=== PATIENT | female | born 1940 | race Caucasian/White ===

== ENCOUNTER 2017-07-17 17:14 | Observation (INO) ==
[2017-07-17] MEDS ORDERED: Nitroglycerin 0.4 MG TAB.SUBL SL PRN (18:29)
[2017-07-17 18:49] LABS: Basophils % 0.7 %; Eosinophils # 0.1 K/mcL (0.0-0.6); Eosinophils % 1.6 %; Hematocrit 36.1 % (35.3-44.9); Hemoglobin 12.4 g/dL (11.5-15.4); Immature Granulocytes % 0.2 % (0-4); Immature Platelets 1.4 % (1.1-6.1); Lymphocytes # 2.4 K/mcL (0.6-4.6); Lymphocytes % 42.5 %; Mean Corpuscular HGB Conc 34.3 g/dL (31.6-35.5); Mean Corpuscular Hemoglobin 32.5 pg (28.0-33.3); Mean Corpuscular Volume 94.5 fL (83.0-100.0); Mean Platelet Volume 8.5 fL (9.4-12.4); Monocytes # 0.6 K/mcL (0.0-1.3); Monocytes % 11.1 %; Neutrophils # 2.5 K/mcL (1.6-8.9); Platelet Count 318 K/mcL (140-400); Red Blood Count 3.82 M/mcL (3.82-4.97); Red Cell Distribution Width 12.1 % (11.5-14.5); Segmented Neutrophils % 43.9 %
[2017-07-17 19:02] LABS: Albumin/Globulin Ratio 1.1 (1.1-2.2); Bilirubin,Direct 0.3 mg/dL (0.0-0.5); Bilirubin,Indirect 0.3 mg/dL (0.0-1.2); Bilirubin,Total 0.6 mg/dL (0.2-1.2); Globulin 3.6 g/dL (2.4-3.5); Total Protein 7.6 g/dL (6.0-8.3)
[2017-07-17] MEDS ORDERED: *HR* Morphine 2 MG/ML SYRINGE IVP ONE (19:46)
[2017-07-17 20:39] LABS: BUN/Creatinine Ratio 19 (6-26); Blood Urea Nitrogen 14 mg/dL (7-20); Calcium 10.5 mg/dL (8.6-10.8); Carbon Dioxide 25 mEq/L (19-29); Chloride 98 mEq/L (98-109); Glucose 99 mg/dL (70-99); Osmolality,Calculated 277 (280-300); Potassium 4.3 mEq/L (3.5-4.5); Sodium 133 mEq/L (136-145); eGFR For African Americans > 60 (> 60); eGFR For Non-African Americans > 60 (> 60)
[2017-07-17 21:01] LABS: Thyroid Stimulating Hormone 1.758 mcIU/mL (0.350-4.840)
[2017-07-17] MEDS ORDERED: *HR* LORazepam 2 MG/ML VIAL IVP ONE (21:58)
--- NOTE | 2017-07-17 22:07 | Emergency Department Note ---
Disposition Clinical Impression: Atypical chest pain, Hiatal hernia Disposition: Admitted As Inpatient Condition: Good Referrals: Radha Ayala CNP [Primary Care Provider] - Forms: ED Satisfaction Letter Time of Disposition: 22:15 Chest Pain HPI - General Chief Complaint: ED Chest Pain Stated Complaint: Chest Pain Time Seen by Provider: 07/17/17 18:14 Source: patient Limitations: no limitations Vital Signs Reviewed: Yes Nursing Notes Reviewed: Yes - History of Present Illness HPI Narrative: 77-year-old female presents emergency room for chest pain and pressure. Started earlier this afternoon while sitting at home. States it was substernal in nature. Radiated slightly to her back as well as to her neck region. She felt short of breath and had nausea with this. No diaphoresis. No vomiting. She does have a history of stents. approximately 4 stents. Last stent was in 2012 roughly. She states most of her pain is more of a pressure. She also some slight pressure in the epigastric region. No other associated symptoms. No other complaints. Nothing seems to improve or worsened symptoms. Severity scale (1-10): 7 - Related Data Home Medications Medication Instructions Recorded Confirmed Aspirin 81 mg PO DAILY 03/01/17 03/01/17 Atorvastatin [Lipitor] 40 mg PO HS 03/01/17 03/01/17 Calcium Carb/D3/Magnesium/Zinc 1 tab PO DAILY 03/01/17 03/01/17 [Hpilip Mag Zinc + D Tablet] Cholecalciferol (Vitamin D3) 5,000 unit PO DAILY 03/01/17 03/01/17 [Vitamin D3] Ferrous Sulfate [Iron] 325 mg PO DAILY 03/01/17 03/01/17 Furosemide [Lasix] 10 mg PO BID 03/01/17 03/01/17 Isosorbide MONOnitrate [Isosorbide 20 mg PO DAILY 03/01/17 03/01/17 Mononitrate] Nitroglycerin [Nitrostat] 0.4 mg SL Q5M PRN 03/01/17 03/01/17 Pantoprazole Sodium [Protonix] 40 mg PO DAILY 03/01/17 03/01/17 Potassium 99 mg PO DAILY 03/01/17 03/01/17 Tiotropium Br/Olodaterol HCl 2 puff IH DAILY 03/01/17 03/01/17 [Stiolto Respimat Inhal [place]] Previous Rx's Medication Instructions Recorded Albuterol Sulfate [Albuterol 2 puff IH Q4HR #1 hfa.aer.ad 03/23/16 Inhaler] Allergies Allergy/AdvReac Type Severity Reaction Status Date / Time acetaminophen Allergy Nausea Verified 03/01/17 08:01 [From Darvocet-N] Amoxicillin [From Augmentin] Allergy Diarrhea Verified 03/01/17 08:01 clavulanic acid Allergy Diarrhea Verified 03/01/17 08:01 [From Augmentin] codeine Allergy Itching Verified 03/01/17 08:01 propoxyphene Allergy Nausea Verified 03/01/17 08:01 [From Darvocet-N] Constitutional: Denies: fever, chills Cardiovascular: Reports: chest pain. Denies: palpitations, dyspnea on exertion Respiratory: Reports: dyspnea. Denies: cough Gastrointestinal: Reports: abdominal pain, nausea. Denies: vomiting Genitourinary: Reports: as per HPI Musculoskeletal: Reports: as per HPI Integumentary: Reports: as per HPI Neurological: Reports: as per HPI Psychiatric: Reports: as per HPI Endocrine: Reports: as per HPI Hematological/Lymphatic: Reports: as per HPI Allergic/Immunologic: Reports: as per HPI Chest Pain PMH - Past Medical History Medical history: Reports: coronary artery disease, hypertension, other Surgical history: Reports: appendectomy, hysterectomy Psychiatric history: Reports: no psych history PAGE TECHNICIAN history: Reports: no PAGE TECHNICIAN history - Social History Smoking Status: Never smoker Alcohol use: Reports: occasionally Drug use: Reports: none Physical Exam - General Limitations: no limitations General appearance: alert, in no apparent distress - Head Head exam: atraumatic, normocephalic - Eye Eye exam: Present: normal appearance - Neck Neck exam: Present: normal inspection, full ROM - Chest Chest inspection: Present: normal inspection - Respiratory Respiratory exam: Present: normal lung sounds bilaterally - Cardiovascular Cardiovascular exam: Present: regular rate, normal rhythm, normal heart sounds - Abdominal Exam Abdominal exam: Present: soft, Non-Tender, normal bowel sounds - Extremities Exam Extremities exam: Present: normal inspection. Absent: tenderness - Expanded Lower Extremity Exam Hip/Pelvis exam: Present: normal inspection - Back Exam Back exam: Present: normal inspection - Neurological Exam Neurological exam: Present: alert, oriented X3 - Psychiatric Psychiatric exam: Present: normal affect - Skin Skin exam: Present: warm, dry, intact Course Course Narrative: ACS workup was negative. She does have an elevated d-dimer. On her chest x- ray shows a had a large hiatal hernia present. I thought this could be the cause of her pressure in her chest. We did a CTA of the chest which was negative for PE. No other acute findings other than she does have an extensive large hiatal hernia. We did treat her blood pressure due to it being elevated in the 180 range. I gave her hydralazine because her heart rate was in the 60s. She had a reaction to the hydralazine with some anxiety as well as cutaneous flushing and shortness of breath and nose itching. I then gave her 0.5 mg of Ativan to help with this anxiety component. Spoke with the hospitalist. They have accepted the patient to their service. evaluate her overnight and keep her for observation. Vital Signs Temperature 97.4 F L 07/17/17 17:48 Pulse Rate 81 07/17/17 17:48 Respiratory Rate 16 07/17/17 17:48 Blood Pressure 160/84 07/17/17 17:48 O2 Sat by Pulse Oximetry 97 07/17/17 17:48 Temperature 97.4 F L 07/17/17 17:48 Pulse Rate 62 07/17/17 21:33 Respiratory Rate 22 07/17/17 21:33 Blood Pressure 173/75 07/17/17 21:33 O2 Sat by Pulse Oximetry 97 07/17/17 21:33 Oxygen Delivery Oxygen Delivery Room Air Chest Pain - Medical Records Medical records reviewed: Yes I reviewed the patient's medical records. - Lab Data Lab results reviewed: Yes I reviewed the patient's lab results. Result diagrams: 07/17/17 18:39 07/17/17 18:39 Lab Results 07/17/17 07/17/17 07/17/17 Range/Units 18:39 18:39 18:39 WBC 5.7 (4.3-11.1) K/mcL RBC 3.82 (3.82-4.97) M/mcL Hgb 12.4 (11.5-15.4) g/dL Hct 36.1 (35.3-44.9) % MCV 94.5 (83.0-100.0) fL MCH 32.5 (28.0-33.3) pg MCHC 34.3 (31.6-35.5) g/dL RDW 12.1 (11.5-14.5) % Plt Count 318 (140-400) K/mcL MPV 8.5 L (9.4-12.4) fL Immature Gran % 0.2 (0-4) % Seg Neutrophils % 43.9 % Lymphocytes % 42.5 % Monocytes % 11.1 % Eosinophils % 1.6 % Basophils % 0.7 % Neutrophils # 2.5 (1.6-8.9) K/mcL Lymphocytes # 2.4 (0.6-4.6) K/mcL Monocytes # 0.6 (0.0-1.3) K/mcL Eosinophils # 0.1 (0.0-0.6) K/mcL Basophils # 0.0 (0.0-0.2) K/mcL Immature Plt Fraction 1.4 (1.1-6.1) % D-Dimer (0-500) ng/mLFEU Sodium 133 L (136-145) mEq/L Potassium 4.3 (3.5-4.5) mEq/L Chloride 98 (98-109) mEq/L Carbon Dioxide 25 (19-29) mEq/L BUN 14 (7-20) mg/dL Creatinine 0.75 (0.57-1.11) mg/dL Est GFR ( Amer) > 60 (> 60) Est GFR (Non-Af Amer) > 60 (> 60) BUN/Creatinine Ratio 19 (6-26) Glucose 99 (70-99) mg/dL Calculated Osmolality 277 L (280-300) Calcium 10.5 (8.6-10.8) mg/dL Total Bilirubin (0.2-1.2) mg/dL Direct Bilirubin (0.0-0.5) mg/dL Indirect Bilirubin (0.0-1.2) mg/dL AST (5-34) Units/L ALT (0-55) Units/L Alkaline Phosphatase (38-126) Units/L Troponin I 0.01 (0-0.03) ng/mL Serum Total Protein (6.0-8.3) g/dL Albumin (3.5-5.0) g/dL Globulin (2.4-3.5) g/dL Albumin/Globulin Ratio (1.1-2.2) Lipase (8-78) Units/L TSH 1.758 (0.350-4.840) mcIU/mL 07/17/17 07/17/17 Range/Units 18:39 18:39 WBC (4.3-11.1) K/mcL RBC (3.82-4.97) M/mcL Hgb (11.5-15.4) g/dL Hct (35.3-44.9) % MCV (83.0-100.0) fL MCH (28.0-33.3) pg MCHC (31.6-35.5) g/dL RDW (11.5-14.5) % Plt Count (140-400) K/mcL MPV (9.4-12.4) fL Immature Gran % (0-4) % Seg Neutrophils % % Lymphocytes % % Monocytes % % Eosinophils % % Basophils % % Neutrophils # (1.6-8.9) K/mcL Lymphocytes # (0.6-4.6) K/mcL Monocytes # (0.0-1.3) K/mcL Eosinophils # (0.0-0.6) K/mcL Basophils # (0.0-0.2) K/mcL Immature Plt Fraction (1.1-6.1) % D-Dimer 700 H (0-500) ng/mLFEU Sodium (136-145) mEq/L Potassium (3.5-4.5) mEq/L Chloride (98-109) mEq/L Carbon Dioxide (19-29) mEq/L BUN (7-20) mg/dL Creatinine (0.57-1.11) mg/dL Est GFR ( Amer) (> 60) Est GFR (Non-Af Amer) (> 60) BUN/Creatinine Ratio (6-26) Glucose (70-99) mg/dL Calculated Osmolality (280-300) Calcium (8.6-10.8) mg/dL Total Bilirubin 0.6 (0.2-1.2) mg/dL Direct Bilirubin 0.3 (0.0-0.5) mg/dL Indirect Bilirubin 0.3 (0.0-1.2) mg/dL AST 22 (5-34) Units/L ALT 16 (0-55) Units/L Alkaline Phosphatase 99 (38-126) Units/L Troponin I (0-0.03) ng/mL Serum Total Protein 7.6 (6.0-8.3) g/dL Albumin 4.0 (3.5-5.0) g/dL Globulin 3.6 H (2.4-3.5) g/dL Albumin/Globulin Ratio 1.1 (1.1-2.2) Lipase 28 (8-78) Units/L TSH (0.350-4.840) mcIU/mL - Radiology Data Radiology results reviewed: Yes I reviewed the patient's radiology results. - EKG Data EKG attestation: Yes I reviewed and interpreted this EKG. EKG results narrative: EKG shows a rate of 81. Normal sinus rhythm. Left axis deviation. DE interval 154. QRS 82. QTC 408. No signs of acute ischemia. Repeat EKG done at 2155. Artifact is present. Rate of 89. Normal sinus rhythm. Left axis deviation. DE interval 178. QRS 78. QTC 415. No acute findings.
[2017-07-17] MEDS ORDERED: Naloxone 0.4 MG/ML INJ IVP PRN (23:52)
[2017-07-17] MEDS ORDERED: *HR* Morphine 2 MG/ML SYRINGE IVP PRN (23:52)
[2017-07-17] MEDS ORDERED: Ondansetron 4 MG/2 ML VIAL IVP PRN (23:52)
--- NOTE | 2017-07-17 23:59 | Event Note ---
Date of Encounter: 07/17/17 Time of Encounter: 23:59 I independently obtained history and examined this patient and my medical decision-making was reviewed with the nurse practitioner, Millie Ochoa. I agree with the documented findings, disposition and treatment plan as described. My findings are summarized below: Patient currently reports mild chest pressure, no associated diaphoresis, no radiation. She presented with substernal chest pain that was not relieved by nitroglycerin. On exam she is in no acute distress awake alert and oriented. Heart exam reveals regular S1-S2 no murmurs, lungs are clear Troponin is negative, EKG nonischemic Plan: Transient troponin, rule out ACS. Obtain stress test in the morning. If she rules out then stress test is negative consider GI workup for a large hiatal hernia of the source of her chest pain.
--- NOTE | 2017-07-18 00:04 | Internal Med History&Physical ---
<Millie Ochoa M - Last Filed: 07/18/17 00:01> Date of Encounter: 07/17/17 Time of Encounter: 23:55 Assessment and Plan (1) Atypical chest pain Current visit: Yes Status: Acute Patient with constant chest pain radiating to her back and upper abdomen with reported shortness of breath and lightheadedness. She has a history of CAD with stent placements. EKG shows no ischemic changes. Initial Troponin was negative at 0.01. CTA showed no evidence of PE. Continuous surveillance monitor serial troponins stress test and echocardiogram in the morning. (2) Coronary artery disease Current visit: Yes Status: Acute Patient with CAD s/p multiple stent placements, most recently in 2012. She will be getting stress test and echocardiogram in the morning as evaluation of her chest pain. Hold morning imdur until after stress test. Continue aspirin, and lipitor. Qualifiers: Coronary Disease-Associated Artery/Lesion type: [place] artery [place] vs. transplanted heart: [place] heart Associated angina: angina presence unspecified Qualified Code(s): I25.10 - Atherosclerotic heart disease of [place] coronary artery without angina pectoris (3) Hiatal hernia Current visit: Yes Status: Acute Patient with known history of hiatal hernia and has followed with Dr. Wiley of Surgery in the past. CTA of the chest redemonstrated the hiatal hernia and reported size is slightly increased. This is possible source of patient's chest discomfort. If ACS is ruled out, she should be referred for follow up of her hiatal hernia. (4) DVT prophylaxis Current visit: Yes Status: Acute anti-embolic stockings heparin SQ TID Internal Medicine - H&P: HPI Chief complaint: chest pain Admitted From: Emergency Dept Plans for Post Hospital Care: Home History of present illness: Ms. Delong is a 77 year old female with hypertension, GERD, coronary artery disease status post stent placement, and hiatal hernia presents emergency room today with complaints of chest pain. Patient reports that she chest pain started on Saturday, she describes it as a pressure, constant radiating to her upper abdomen and to her back. She also reports shortness of breath, and nausea , as well as occasional lightheadedness. She denies any palpitations, coughing , vomiting, fever, chills or sweats. Evaluation in the emergency department included an EKG which showed normal sinus rhythm and no ischemic changes. Troponin was negative at 0.01. D-dimer was mildly elevated at 700. Chest x- ray showed no acute abnormality. CTA of her chest showed no evidence of PE, and large hiatal hernia. On exam, patient alert and oriented, in no acute distress. Heart had regular rate and rhythm, lungs are clear bilaterally to auscultation. No peripheral edema. Abdomen was soft, mildly tender to palpation, with positive bowel sounds. Past Med Surg Social Fam HX - Past Medical History Medical history: coronary artery disease, GERD, hypertension, other Psychiatric history: no psych history - Past Surgical History Surgical History: angioplasty/stent, appendectomy, hysterectomy, knee replacement, orthopedic, other - Social History Smoking Status: Never smoker Smokeless Tobacco Status: No Alcohol use: occasionally Drug use: none - Family History Mother Living Status: Cause of : ashtmatic heart Father Living Status: Cause of : CVA Brother Living Status: Age at : 45 Cause of : AR Internal Medicine - H&P: Meds Aspirin 81 mg PO HS 03/01/17 [History] Atorvastatin [Lipitor] 40 mg PO HS 03/01/17 [History] Calcium Carb/D3/Magnesium/Zinc [Philip Mag Zinc + D Tablet] 1 tab PO DAILY [History] Cholecalciferol (Vitamin D3) [Vitamin D3] 5,000 unit PO DAILY 03/01/17 [History] Ferrous Sulfate [Iron] 325 mg PO DAILY 03/01/17 [History] Furosemide [Lasix] 10 mg PO DAILY 03/01/17 [History] Isosorbide MONOnitrate [Isosorbide Mononitrate] 20 mg PO DAILY 03/01/17 [History ] Nitroglycerin [Nitrostat] 0.4 mg SL Q5M PRN 03/01/17 [History] Potassium 99 mg PO DAILY 03/01/17 [History] Acetaminophen [Tylenol] 1,000 mg PO HS 07/17/17 [History] DULoxetine [Cymbalta] 30 mg PO DAILY 07/17/17 [History] Esomeprazole Magnesium [Nexium] 40 mg PO DAILY 07/17/17 [History] Latanoprost [Xalatan] 1 drop OP HS 07/17/17 [History] Magnesium 250 mg PO DAILY 07/17/17 [History] Valsartan [Valsartan] 40 mg PO DAILY 07/17/17 [History] 3 Allergy/AdvReac Type Severity Reaction Status Date / Time acetaminophen Allergy Nausea Verified 03/01/17 08:01 [From Darvocet-N] Amoxicillin [From Augmentin] Allergy Diarrhea Verified 03/01/17 08:01 clavulanic acid Allergy Diarrhea Verified 03/01/17 08:01 [From Augmentin] codeine Allergy Itching Verified 03/01/17 08:01 propoxyphene Allergy Nausea Verified 03/01/17 08:01 [From Darvocet-N] Hydralazine AdvReac Hypotension Verified 07/17/17 23:54 All Systems PM: A 10-system review of systems was performed and is negative for pertinent findings except as documented above in the HPI. - Constitutional Constitutional: no chills, no fever(s), no night sweats - EENT Eyes: blurry vision (chronic), no change in vision, no discharge, no pain, no photophobia Ears: no ear discharge, no ear pain, no tinnitus Nose, mouth and throat: no dysphagia, no nasal discharge, no neck pain, no sore throat - Cardiovascular Cardiovascular ROS IM: chest pain, dyspnea, lightheadedness, no diaphoresis, no palpitations, no syncope - Respiratory Respiratory: no cough, no dyspnea, no wheezing, no excessive phlegm production - Gastrointestinal Gastrointestinal: abdominal pain, nausea, no diarrhea, no hematemesis, no hematochezia, no melena, no vomiting - Genitourinary Genitourinary: no change in urinary stream, no dysuria, no flank pain, no hematuria - Musculoskeletal Musculoskeletal ROS IM: no numbness, no tingling - Integumentary Integumentary IM: no rash, no unusual bruising - Neurological Neurological ROS: no confusion, no convulsions, no focal weakness, no numbness, no tingling, no tremor(s) - Hematologic/Lymphatic Hematologic/Lymphatic: no easy bruising - Constitutional Vitals: Temp Pulse Resp BP Pulse Ox 97.6 F 81 18 131/56 97 07/17/17 23:20 07/17/17 23:20 07/17/17 23:20 07/17/17 23:20 07/17/17 23:48 General appearance: Present: A&O X 3, pleasant, no acute distress - Head Head exam: Present: atraumatic, normocephalic - Eye Eye exam: Present: PERRL, conjuntiva pink, sclera anicteric Pupils: Present: PERRL - Neck Neck exam general surgery: Present: supple, trachea midline. Absent: lymphadenopathy - Respiratory Respiratory exam: Present: CTAB. Absent: accessory muscle use, rales, rhonchi, wheezes - Cardiovascular Cardiovascular exam: Present: RRR, +S1, +S2. Absent: diastolic murmur, gallop, rubs, systolic murmur - GI/Abdominal GI/Abdominal exam: Present: normal bowel sounds, soft, tenderness (mildly diffusely tender), no peritoneal signs. Absent: distended - Extremities Exam Extremities exam: Present: warm, radial pulses palpable and symmetrical. Absent : calf tenderness, cyanotic, pedal edema - Neurological Exam Neurological exam: Present: CN II-XII intact, oriented X3, no focal deficits. Absent: facial droop, speech deficit - Skin Skin exam: Present: dry, intact Internal Med - H&P Results - Labs CBC & Chem 7: 07/17/17 18:39 07/17/17 18:39 Labs: All Lab Results (24 Hours) 07/17/17 07/17/17 07/17/17 Range/Units 18:39 18:39 18:39 WBC 5.7 (4.3-11.1) K/mcL RBC 3.82 (3.82-4.97) M/mcL Hgb 12.4 (11.5-15.4) g/dL Hct 36.1 (35.3-44.9) % MCV 94.5 (83.0-100.0) fL MCH 32.5 (28.0-33.3) pg MCHC 34.3 (31.6-35.5) g/dL RDW 12.1 (11.5-14.5) % Plt Count 318 (140-400) K/mcL MPV 8.5 L (9.4-12.4) fL Immature Gran % 0.2 (0-4) % Seg Neutrophils % 43.9 % Lymphocytes % 42.5 % Monocytes % 11.1 % Eosinophils % 1.6 % Basophils % 0.7 % Neutrophils # 2.5 (1.6-8.9) K/mcL Lymphocytes # 2.4 (0.6-4.6) K/mcL Monocytes # 0.6 (0.0-1.3) K/mcL Eosinophils # 0.1 (0.0-0.6) K/mcL Basophils # 0.0 (0.0-0.2) K/mcL Immature Plt Fraction 1.4 (1.1-6.1) % D-Dimer (0-500) ng/mLFEU Sodium 133 L (136-145) mEq/L Potassium 4.3 (3.5-4.5) mEq/L Chloride 98 (98-109) mEq/L Carbon Dioxide 25 (19-29) mEq/L BUN 14 (7-20) mg/dL Creatinine 0.75 (0.57-1.11) mg/dL Est GFR ( Amer) > 60 (> 60) Est GFR (Non-Af Amer) > 60 (> 60) BUN/Creatinine Ratio 19 (6-26) Glucose 99 (70-99) mg/dL Calculated Osmolality 277 L (280-300) Calcium 10.5 (8.6-10.8) mg/dL Total Bilirubin (0.2-1.2) mg/dL Direct Bilirubin (0.0-0.5) mg/dL Indirect Bilirubin (0.0-1.2) mg/dL AST (5-34) Units/L ALT (0-55) Units/L Alkaline Phosphatase (38-126) Units/L Troponin I 0.01 (0-0.03) ng/mL Serum Total Protein (6.0-8.3) g/dL Albumin (3.5-5.0) g/dL Globulin (2.4-3.5) g/dL Albumin/Globulin Ratio (1.1-2.2) Lipase (8-78) Units/L TSH 1.758 (0.350-4.840) mcIU/mL 07/17/17 07/17/17 Range/Units 18:39 18:39 WBC (4.3-11.1) K/mcL RBC (3.82-4.97) M/mcL Hgb (11.5-15.4) g/dL Hct (35.3-44.9) % MCV (83.0-100.0) fL MCH (28.0-33.3) pg MCHC (31.6-35.5) g/dL RDW (11.5-14.5) % Plt Count (140-400) K/mcL MPV (9.4-12.4) fL Immature Gran % (0-4) % Seg Neutrophils % % Lymphocytes % % Monocytes % % Eosinophils % % Basophils % % Neutrophils # (1.6-8.9) K/mcL Lymphocytes # (0.6-4.6) K/mcL Monocytes # (0.0-1.3) K/mcL Eosinophils # (0.0-0.6) K/mcL Basophils # (0.0-0.2) K/mcL Immature Plt Fraction (1.1-6.1) % D-Dimer 700 H (0-500) ng/mLFEU Sodium (136-145) mEq/L Potassium (3.5-4.5) mEq/L Chloride (98-109) mEq/L Carbon Dioxide (19-29) mEq/L BUN (7-20) mg/dL Creatinine (0.57-1.11) mg/dL Est GFR ( Amer) (> 60) Est GFR (Non-Af Amer) (> 60) BUN/Creatinine Ratio (6-26) Glucose (70-99) mg/dL Calculated Osmolality (280-300) Calcium (8.6-10.8) mg/dL Total Bilirubin 0.6 (0.2-1.2) mg/dL Direct Bilirubin 0.3 (0.0-0.5) mg/dL Indirect Bilirubin 0.3 (0.0-1.2) mg/dL AST 22 (5-34) Units/L ALT 16 (0-55) Units/L Alkaline Phosphatase 99 (38-126) Units/L Troponin I (0-0.03) ng/mL Serum Total Protein 7.6 (6.0-8.3) g/dL Albumin 4.0 (3.5-5.0) g/dL Globulin 3.6 H (2.4-3.5) g/dL Albumin/Globulin Ratio 1.1 (1.1-2.2) Lipase 28 (8-78) Units/L TSH (0.350-4.840) mcIU/mL - Diagnostic Studies Chest x-ray Additional comments: Chest X-Ray 07/17/17 17:52 IMPRESSION: No acute abnormality detected. D/ / Jam Atkinson MD / Jam Atkinson MD Interpreting Provider: Jam Atkinson MD [place] CT scan - abdomen Additional comments: Chest CTA 07/17/17 19:06 IMPRESSION: No evidence of pulmonary embolism or acute pulmonary abnormality. Stable right upper lobe scarring. The gallbladder wall appears diffusely thickened. Gallbladder was incompletely visualized. Follow-up gallbladder ultrasound after fasting may be helpful. D/ / Nestor Silva MD / Nestor Silva MD Interpreting Provider: Nestor Silva MD <Luis Mcmahan - Last Filed: 07/18/17 06:04> Date of Encounter: 07/17/17 Internal Medicine - H&P: HPI History of present illness: Ms. Delong is a 77 year old female All Systems PM: A 10-system review of systems was performed and is negative for pertinent findings except as documented above in the HPI. - Constitutional Vitals: Temp Pulse Resp BP Pulse Ox 97.6 F 81 18 131/56 97 07/17/17 23:20 07/17/17 23:20 07/17/17 23:20 07/17/17 23:20 07/17/17 23:48 Internal Med - H&P Results - Labs CBC & Chem 7: 07/18/17 04:11 07/17/17 18:39 Labs: Short CBC 07/18/17 Range/Units 04:11 WBC 5.8 (4.3-11.1) K/mcL Hgb 11.3 L (11.5-15.4) g/dL Hct 32.8 L (35.3-44.9) % Plt Count 260 (140-400) K/mcL Neutrophils # 3.0 (1.6-8.9) K/mcL Cardiac Enzymes 07/18/17 Range/Units 04:11 Troponin I 0.00 (0-0.03) ng/mL - Attending Attestation I independently obtained history and examined this patient and my medical decision-making was reviewed with the nurse practitioner, Millie Ochoa. I agree with the documented findings, disposition and treatment plan as described. My findings are summarized in the event note dictated the same date of service.
[2017-07-18 05:17] LABS: Basophils # 0.1 K/mcL (0.0-0.2); Basophils % 0.9 %; Eosinophils # 0.1 K/mcL (0.0-0.6); Eosinophils % 2.2 %; Hematocrit 32.8 % (35.3-44.9); Hemoglobin 11.3 g/dL (11.5-15.4); Immature Granulocytes % 0.2 % (0-4); Lymphocytes # 1.9 K/mcL (0.6-4.6); Lymphocytes % 32.6 %; Mean Corpuscular HGB Conc 34.5 g/dL (31.6-35.5); Mean Corpuscular Hemoglobin 32.2 pg (28.0-33.3); Mean Corpuscular Volume 93.4 fL (83.0-100.0); Monocytes # 0.7 K/mcL (0.0-1.3); Monocytes % 12.7 %; Platelet Count 260 K/mcL (140-400); Red Blood Count 3.51 M/mcL (3.82-4.97); Red Cell Distribution Width 12.1 % (11.5-14.5); Segmented Neutrophils % 51.4 %
[2017-07-18] MEDS: *HR* Heparin 5,000 UNIT/ML VIAL SQ SCH ×3 (05:41→20:48)
[2017-07-18] MEDS ORDERED: Regadenoson 0.4 MG/5 ML SYRINGE IVP ONE (05:41)
[2017-07-18 07:23] LABS: BUN/Creatinine Ratio 22 (6-26); Blood Urea Nitrogen 15 mg/dL (7-20); Calcium 9.4 mg/dL (8.6-10.8); Carbon Dioxide 23 mEq/L (19-29); Chloride 99 mEq/L (98-109); Chol/HDL Ratio 3.1 (0-4.9); Cholesterol 134 mg/dL (< 200); Glucose 93 mg/dL (70-99); HDL Cholesterol 43 mg/dL (40-59); LDL Cholesterol,Calculated 76 mg/dL (0-99); Osmolality,Calculated 281 (280-300); Potassium 4.2 mEq/L (3.5-4.5); Sodium 135 mEq/L (136-145); Triglycerides 74 mg/dL (< 150); eGFR For African Americans > 60 (> 60); eGFR For Non-African Americans > 60 (> 60)
[2017-07-18] MEDS ORDERED: NON-FORMULARY MEDICATION 1 EACH EACH (Isosorbide Mononitrate [Isosorbide Mononitrate] 20 M PO SCH (09:00)
[2017-07-18] MEDS: Potassium [Potassium] 99 MG PO SCH (09:44)
[2017-07-18] MEDS: MAGNESIUM 250MG PO SCH (09:44)
[2017-07-18] MEDS: Valsartan 80 MG TABLET PO SCH (13:02)
[2017-07-18] MEDS: Furosemide 20 MG TABLET PO SCH (13:03)
--- NOTE | 2017-07-18 13:20 | Nuclear Medicine Stress Report ---
Regadenoson Nuclear Stress Name: Amada Delong Date of Study: 07/18/2017 Date: 1940 Ht: 63.0 in Medical Record#: [id number] Age: 77 Wt: 144.0 lb Gender: Female Order #: [id number] Location: [facility] Room: [facility] Supervising Provider: Anel Frazier CNP Reading Physician: Yola Whyte DO Ordering Physician: Blaire Florez CNP Primary Care Physician: Radha Ayala CNP Stress Technologist: Aaron Fitzgerald CRT Power Lineworker: Gary Cook Indications: Chest Pain Impression: Perfusion imaging was negative for ischemia or infarct. No appreciable change in pharmacologic ECG from baseline. Gated EF = >70%. History: Hypertension Hypercholesteremia Stress Test Summary: Stress Test Type: Pharmacologic Regadenoson 0.4mg/5ml given IV Baseline Information: Initial Heart Rate: 79 Blood Pressure: 114/70 Stress Information: Test Terminated Due to (primary): As per protocol Maximum Blood Pressure: 122/70 Maximum Heart Rate: 112 Percent Maximum Heart Rate Achieved: 79 Double Product: 14256 METS Reached: 1 Symptoms: No chest symptoms Nuclear Summary: SPECT myocardial perfusion imaging using Tc99m Sestamibi given intravenously was performed at rest and following cardiac stress testing. The resting images were obtained following initial dose of 11.7 mCi. Following stress an additional dose of 33.6 mCi was given at peak exercise or 30 seconds post regadenoson infusion. Medication Given: Time Medication Dose Units Route Findings: Stress Note * Resting ECG demonstrated normal sinus rhythm with probable leftward axis, poor R wave progression and nonspecific ST abnormalities. * No appreciable change in pharmacologic ECG with stress. * Occasional PVCs noted during testing. * Patient had no chest pain during stress. Hemodynamic responses * Normal hemodynamic responses to pharmacologic stress. Study Quality * Study quality was fair. Gated EF > 70% * Gated EF > 70%. Left Ventricle * The left ventricle is not dilated. TID * No evidence of transient ischemic dilatation. Lung Uptake * There is no evidence of increase lung uptake. NORMALS * Normal wall motion. PERFUSION * There is a small size, fixed perfusion defect involving the distal inferolateral wall. Wall motion is normal in this area. Findings likely represent artifact. * Other segments demonstrate normal rest and stress radiotracer uptake. Updated by Yola Whyte on 07/18/2017 1:11:39 PM electronically signed on 07/18/2017 1:14:04 PM with status of Final
[2017-07-18] MEDS: Isosorbide MONOnitrate (24 HR) 30 MG TAB.ER.24H PO SCH (14:14)
--- NOTE | 2017-07-18 16:36 | Internal Med Progress Note ---
Date of Encounter: 07/18/17 Time of Encounter: 15:45 - Assessment and plan (1) Atypical chest pain Current Visit: Yes Status: Acute Assessment and plan: Chest pain is reproducible with palpation and worsened with movement. Consistent with musculoskeletal etiology. Chest x-ray negative. Chest CTA unremarkable for acute processes other than an increase size to her hiatal hernia. CT also revealed possible thickening to the gallbladder wall however abdominal labs including lipase, bilirubin, LFTs all normal. Echocardiogram unremarkable with ejection fraction of 60% and mild diastolic dysfunction. Patient euvolemic on examination and denies shortness of breath above her norm. Stress test negative. Acute coronary syndrome has been ruled out. Requesting surgery's input regarding the patient's hiatal hernia. Will also obtain gallbladder ultrasound. In review of her chart, patient appears to have had multiple endoscopies over the past several years. 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 Most recent EGD was on 03/01/[address] Wiley that revealed a medium-sized hiatal hernia. Z line irregular at the gastroesophageal junction that was biopsied. Normal stomach, normal examined duodenum. ITS Impressions Chest X-Ray 07/17/17 17:52 IMPRESSION: No acute abnormality detected. D/ / Jam Atkinson MD / Jam Atkinson MD Interpreting Provider: Jam Atkinson MD Chest CTA 07/17/17 19:06 IMPRESSION: No evidence of pulmonary embolism or acute pulmonary abnormality. Stable right upper lobe scarring. The gallbladder wall appears diffusely thickened. Gallbladder was incompletely visualized. Follow-up gallbladder ultrasound after fasting may be helpful. D/ / Nestor Silva MD / Nestor Silva MD Interpreting Provider: Nestor Silva MD (2) Hiatal hernia Current Visit: Yes Status: Chronic (3) Anxiety about health Current Visit: Yes Status: Chronic Assessment and plan: Acute on chronic. The patient and the family are extremely concerned about the patient's hiatal hernia. They appear to be perseverating on it and states that they have they have seen her primary care provider and outpatient surgery several times and are requesting to see a surgeon during this visit prior to discharge. Patient had what appeared to be an anxiety attack over the night last night. She states that when she lays on her left side, she wakes up with left-sided chest pain, then becomes short of breath, then becomes extremely anxious and starts to panic. Patient family state that this is been going on for quite some time but is much worse in the recent past. Appreciate surgery's input. (4) Falls frequently Current Visit: Yes Status: Acute Assessment and plan: Patient and family report increased falls in the recent past. Seen and evaluated by occupational and physical therapy both of whom recommended home health services. Patient is amenable to this. director of rehabilitative services on board. (5) Coronary artery disease Current Visit: Yes Status: Chronic Qualifiers: Coronary Disease-Associated Artery/Lesion type: [place] artery [place] vs. transplanted heart: chitina heart Associated angina: angina presence unspecified Qualified Code(s): I25.10 - Atherosclerotic heart disease of [place] coronary artery without angina pectoris (6) GERD (gastroesophageal reflux disease) Current Visit: Yes Status: Acute Assessment and plan: Patient's reflux and Verdin's esophagus is an ongoing issue dating back to around 1999. She was on Protonix daily and it reportedly did well. For some reason, she states that she was switched over to Nexium which worked but then she was switched over to the generic of Nexium and she states that the generic form does not work. She states that she has severe heartburn that is uncontrolled. She states that her primary care provider is attempting to get her name brand Nexium through her insurance company but has been unsuccessful thus far. We will change to Protonix while admitted. (7) DVT prophylaxis Current Visit: Yes Status: Acute Assessment and plan: Subcutaneous heparin - Subjective Interval history: Patient seen and examined. On examination, patient initially asleep and awakened easily to voice. Her daughter and are at the bedside. Patient stating she feels better and denies pain or shortness of breath at this time. Her family is expressing a lot of concern regarding the untreated hiatal hernia and are requesting to see a surgeon at this time prior to discharge. - Constitutional Vitals: Temp Pulse Resp BP Pulse Ox 98.2 F 79 19 105/70 95 07/18/17 16:04 07/18/17 16:04 07/18/17 16:04 07/18/17 16:04 07/18/17 16:04 General appearance: Present: A&O X 3, pleasant, no acute distress, answers questions appropriately - Head Head exam: Present: atraumatic, normocephalic - Eye Eye exam: Present: PERRL, conjuntiva pink, sclera anicteric Pupils: Present: PERRL - Neck Neck exam general surgery: Present: supple, trachea midline. Absent: lymphadenopathy - Respiratory Respiratory exam: Present: CTAB. Absent: accessory muscle use, rales, respiratory distress, rhonchi, wheezes - Cardiovascular Cardiovascular exam: Present: RRR, +S1, +S2. Absent: diastolic murmur, gallop, rubs, systolic murmur - GI/Abdominal GI/Abdominal exam: Present: normal bowel sounds, soft, tenderness, no peritoneal signs. Absent: distended - Extremities Exam Extremities exam: Present: warm, radial pulses palpable and symmetrical. Absent : calf tenderness, cyanotic, pedal edema - Neurological Exam Neurological exam: Present: alert, CN II-XII intact, oriented X3, no focal deficits, strengths equal and symetr throughout. Absent: pronater drift, facial droop, speech deficit - Skin Skin exam: Present: dry, intact, pallor, warm Internal Medicine: Result - Labs CBC & Chem 7: 07/18/17 04:11 07/18/17 04:11 Labs: Short CBC 07/18/17 Range/Units 04:11 WBC 5.8 (4.3-11.1) K/mcL Hgb 11.3 L (11.5-15.4) g/dL Hct 32.8 L (35.3-44.9) % Plt Count 260 (140-400) K/mcL Neutrophils # 3.0 (1.6-8.9) K/mcL BMP 07/18/17 04:11 Sodium 135 L Potassium 4.2 Chloride 99 Carbon Dioxide 23 BUN 15 Creatinine 0.69 Glucose 93 Calcium 9.4 Cardiac Enzymes 07/18/17 07/18/17 Range/Units 04:11 09:50 Troponin I 0.00 0.01 (0-0.03) ng/mL - ABG Interpretation ABG results: PT/INR, D-dimer D-Dimer 700 ng/mLFEU (0-500) H 07/17/17 18:39 Consult Discharge Plan - Plan Referrals: Radha Ayala, [facility] [Primary Care Provider] -
[2017-07-18] MEDS ORDERED: *HR* LORazepam 2 MG/ML VIAL IVP PRN (16:44)
[2017-07-18] MEDS ORDERED: *HR* Morphine 2 MG/ML SYRINGE IVP PRN (16:44)
[2017-07-18] MEDS: Pantoprazole 40 MG VIAL IVP SCH (17:10)
--- NOTE | 2017-07-18 18:10 | Electrocardiograph Report ---
[address] [place] [address] Test Date: 2017-07-17 Pat Name: Amada Delong Department: 0 Room: 3B23 Gender: F Contract Mail Carrier: Radha : 1940 Requested By: Frankie Monaco Order Number: [id number] Reading MD: Yola Whyte Measurements Intervals [place] Rate: 89 P: 39 MT: 178 QRS: -13 QRSD: 78 T: 55 QT: 368 QTc: 415 Interpretive Statements SINUS RHYTHM ARTIFACT LIMITS INTERPRETATION Electronically Signed On 07-18-2017 18:09:04 EDT by Yola Whyte
[2017-07-18] MEDS ORDERED: Aspirin 81 MG TAB.CHEW PO SCH (21:00)
[2017-07-19 03:30] LABS: Basophils % 0.7 %; Eosinophils # 0.2 K/mcL (0.0-0.6); Eosinophils % 2.5 %; Hematocrit 32.3 % (35.3-44.9); Hemoglobin 10.9 g/dL (11.5-15.4); Immature Granulocytes % 0.2 % (0-4); Lymphocytes # 2.4 K/mcL (0.6-4.6); Lymphocytes % 39.6 %; Mean Corpuscular HGB Conc 33.7 g/dL (31.6-35.5); Mean Corpuscular Hemoglobin 32.2 pg (28.0-33.3); Mean Corpuscular Volume 95.6 fL (83.0-100.0); Mean Platelet Volume 8.9 fL (9.4-12.4); Monocytes # 0.7 K/mcL (0.0-1.3); Monocytes % 10.8 %; Neutrophils # 2.8 K/mcL (1.6-8.9); Platelet Count 269 K/mcL (140-400); Red Blood Count 3.38 M/mcL (3.82-4.97); Red Cell Distribution Width 12.2 % (11.5-14.5); Segmented Neutrophils % 46.2 %
[2017-07-19 03:33] LABS: Prothrombin Time 10.8 Seconds (9.4-12.1)
[2017-07-19 03:44] LABS: BUN/Creatinine Ratio 24 (6-26); Blood Urea Nitrogen 18 mg/dL (7-20); Calcium 9.2 mg/dL (8.6-10.8); Carbon Dioxide 25 mEq/L (19-29); Chloride 99 mEq/L (98-109); Glucose 96 mg/dL (70-99); Osmolality,Calculated 274 (280-300); Potassium 4.3 mEq/L (3.5-4.5); Sodium 131 mEq/L (136-145); eGFR For African Americans > 60 (> 60); eGFR For Non-African Americans > 60 (> 60)
[2017-07-19] MEDS: Pantoprazole 40 MG VIAL IVP SCH (06:11)
[2017-07-19] MEDS: *HR* Heparin 5,000 UNIT/ML VIAL SQ SCH ×2 (06:11→14:18)
[2017-07-19] MEDS: MAGNESIUM 250MG PO SCH (07:36)
[2017-07-19] MEDS: Potassium [Potassium] 99 MG PO SCH (07:36)
--- NOTE | 2017-07-19 12:45 | General Surgery Consult Note ---
Date of Encounter: 07/19/17 Time of Encounter: 10:15 Assessment and Plan (1) Hiatal hernia Current Visit: Yes Status: Chronic Interval increase in size Plan for UGI evaluation as outpatient with f/u to Dr. Wiley Continue with daily PPI therapy History of Present Illness Consult date: 07/19/17 Reason for consult: hernia (patient with moderate hiatal hernia, now large. Here for CP. cardiac etiology ruled out. Initial plan was for outpatient followup- family demanding to see surgery. EGD per Dr Wiley February 2017) History of present illness: Amada Delong is a 77 year old female with PMH CAD, hiatal hernia, and HTN who presented to [facility] with chest pain. She stated that it started Saturday and was accompanied by pressure. This pain, which she described as sharp in quality , was waxing and waning, but progressing in peak intensity. The pain radiates from the chest, over the shoulder, and into the back, as well as across the anterior abdomen. She additionally complains of nausea and shortness of breath. She denied vomiting, distention, diarrhea, and constipation. Cardiac workup in the ED was negative, and CTA was negative for PE, but did show moderate thickening of the gallbladder and slight interval enlargement of her hiatal hernia. Past Med Surg Social Fam HX - Past Medical History Medical history: coronary artery disease, GERD, hypertension, other Psychiatric history: no psych history - Past Surgical History Surgical History: angioplasty/stent, appendectomy, hysterectomy, knee replacement, orthopedic, other - Social History Smoking Status: Never smoker Smokeless Tobacco Status: No Alcohol use: occasionally Drug use: none - Family History Mother Living Status: Cause of : ashtmatic heart Father Living Status: Cause of : CVA Brother Living Status: Age at : 45 Cause of : MS Medications and Allergies Aspirin 81 mg PO HS 03/01/17 [History] Atorvastatin [Lipitor] 40 mg PO HS 03/01/17 [History] Calcium Carb/D3/Magnesium/Zinc [Philip Mag Zinc + D Tablet] 1 tab PO DAILY [History] Cholecalciferol (Vitamin D3) [Vitamin D3] 5,000 unit PO DAILY 03/01/17 [History] Ferrous Sulfate [Iron] 325 mg PO DAILY 03/01/17 [History] Furosemide [Lasix] 10 mg PO DAILY 03/01/17 [History] Isosorbide MONOnitrate [Isosorbide Mononitrate] 20 mg PO DAILY 03/01/17 [History ] Nitroglycerin [Nitrostat] 0.4 mg SL Q5M PRN 03/01/17 [History] Potassium 99 mg PO DAILY 03/01/17 [History] Acetaminophen [Tylenol] 1,000 mg PO HS 07/17/17 [History] DULoxetine [Cymbalta] 30 mg PO DAILY 07/17/17 [History] Esomeprazole Magnesium [Nexium] 40 mg PO DAILY 07/17/17 [History] Latanoprost [Xalatan] 1 drop OP HS 07/17/17 [History] Magnesium 250 mg PO DAILY 07/17/17 [History] Valsartan [Valsartan] 40 mg PO DAILY 07/17/17 [History] 3 Allergy/AdvReac Type Severity Reaction Status Date / Time acetaminophen Allergy Nausea Verified 03/01/17 08:01 [From Darvocet-N] Amoxicillin [From Augmentin] Allergy Diarrhea Verified 03/01/17 08:01 clavulanic acid Allergy Diarrhea Verified 03/01/17 08:01 [From Augmentin] codeine Allergy Itching Verified 03/01/17 08:01 propoxyphene Allergy Nausea Verified 03/01/17 08:01 [From Darvocet-N] Hydralazine AdvReac Hypotension Verified 07/17/17 23:54 Review of Systems All systems PM: A 10-system review of systems was performed and is negative for pertinent findings except as documented above in the HPI. - Constitutional no anorexia, no chills, no fever(s) General Surgery Exam Initial Vital Signs Temp Pulse Resp BP Pulse Ox 97.4 F L 81 16 160/84 97 07/17/17 17:48 07/17/17 17:48 07/17/17 17:48 07/17/17 17:48 07/17/17 17:48 - General physical appearance well developed, well nourished, no distress - Eyes normal ocular movement - ENT atraumatic, normocephalic - Neck trachea midline - Respiratory normal expansion, normal respiratory effort, clear to auscultation - Cardiovascular Cardiovascular exam: Present: RRR - Abdomen Abdomen general surgery: Present: bowel sounds present, soft, tender. Absent: guarding, rebound Abdominal Tenderness: Present: diffusely (upper half > Lower half) - Musculoskeletal Present: normal posture - Psychiatric Psychiatric general surgery: Present: appropriate, speech is normal Exam Initial Vital Signs Temp Pulse Resp BP Pulse Ox 97.4 F L 81 16 160/84 97 07/17/17 17:48 07/17/17 17:48 07/17/17 17:48 07/17/17 17:48 07/17/17 17:48 Results - Labs 07/19/17 02:59 07/19/17 02:59 Abnormal lab results RBC 3.38 M/mcL (3.82-4.97) L 07/19/17 02:59 Hgb 10.9 g/dL (11.5-15.4) L 07/19/17 02:59 Hct 32.3 % (35.3-44.9) L 07/19/17 02:59 MPV 8.9 fL (9.4-12.4) L 07/19/17 02:59 D-Dimer 700 ng/mLFEU (0-500) H 07/17/17 18:39 Sodium 131 mEq/L (136-145) L 07/19/17 02:59 POC Glucose 99 (58-89) H 07/19/17 11:27 Calculated Osmolality 274 (280-300) L 07/19/17 02:59 Globulin 3.6 g/dL (2.4-3.5) H 07/17/17 18:39 Diabetes panel 07/19/17 Range/Units 02:59 Sodium 131 L (136-145) mEq/L Potassium 4.3 (3.5-4.5) mEq/L Chloride 99 (98-109) mEq/L Carbon Dioxide 25 (19-29) mEq/L BUN 18 (7-20) mg/dL Creatinine 0.76 (0.57-1.11) mg/dL Glucose 96 (70-99) mg/dL Calcium 9.2 (8.6-10.8) mg/dL Calcium panel 07/19/17 Range/Units 02:59 Calcium 9.2 (8.6-10.8) mg/dL Pituitary panel 07/19/17 Range/Units 02:59 Sodium 131 L (136-145) mEq/L Potassium 4.3 (3.5-4.5) mEq/L Chloride 99 (98-109) mEq/L Carbon Dioxide 25 (19-29) mEq/L BUN 18 (7-20) mg/dL Creatinine 0.76 (0.57-1.11) mg/dL Glucose 96 (70-99) mg/dL Calcium 9.2 (8.6-10.8) mg/dL Adrenal panel 07/19/17 Range/Units 02:59 Sodium 131 L (136-145) mEq/L Potassium 4.3 (3.5-4.5) mEq/L Chloride 99 (98-109) mEq/L Carbon Dioxide 25 (19-29) mEq/L BUN 18 (7-20) mg/dL Creatinine 0.76 (0.57-1.11) mg/dL Glucose 96 (70-99) mg/dL Calcium 9.2 (8.6-10.8) mg/dL All other labs normal. - Imaging CT scan - chest: report reviewed ( CT/CT angio chest IMPRESSION: No evidence of pulmonary embolism or acute pulmonary abnormality. Stable right upper lobe scarring. The gallbladder wall appears diffusely thickened. Gallbladder was incompletely visualized. Follow-up gallbladder ultrasound after fasting may be helpful. D/ / Nestor Silva MD / Nestor Silva MD Interpreting Provider: Nestor Silva MD ) US - abdomen: report reviewed ( US/US gall bladder IMPRESSION : Increased echogenicity of the liver which can be seen in fatty change. Mild gallbladder wall thickening measuring up to 6 mm. No biliary dilatation. No pericholecystic fluid or cholelithiasis.) Consult Discharge Plan - Plan Referrals: Radha Ayala, [facility] [Primary Care Provider] -
[2017-07-19] MEDS: Isosorbide MONOnitrate (24 HR) 30 MG TAB.ER.24H PO SCH (14:15)
[2017-07-19] MEDS: Valsartan 80 MG TABLET PO SCH (14:17)
[2017-07-19] MEDS: Furosemide 20 MG TABLET PO SCH (14:18)
[2017-07-19 15:00] VITALS: BP 130/77
--- NOTE | 2017-07-19 16:13 | Discharge Summary ---
Date of Encounter: 07/19/17 Time of Encounter: 15:15 - Discharge Diagnosis (1) Atypical chest pain Priority: Primary Status: Resolved Comments: Chest pain is reproducible with palpation and worsened with movement. Consistent with musculoskeletal etiology. Chest x-ray negative. Chest CTA unremarkable for acute processes other than an increase size to her hiatal hernia. CT also revealed possible thickening to the gallbladder wall however abdominal labs including lipase, bilirubin, LFTs all normal- GB ultrasound also unremarkable. Echocardiogram unremarkable with ejection fraction of 60% and mild diastolic dysfunction. Patient euvolemic on examination and denied shortness of breath above her norm. Stress test negative. Acute coronary syndrome has been ruled out. Patient and family requested surgery's input regarding the patient's hiatal hernia- cleared for outpatient followup. (2) Hiatal hernia Priority: Secondary Status: Chronic Comments: Following up outpatient with surgery for repeat EGD and follow-up appointment with Dr. Wiley (3) Anxiety about health Priority: Secondary Status: Chronic (4) Falls frequently Priority: Primary Status: Acute Comments: Seen and evaluated by occupational and physical therapy recommended home health services, sending home with home health services. (5) Coronary artery disease Priority: Secondary Status: Chronic Qualifiers: Coronary Disease-Associated Artery/Lesion type: [place] artery [place] vs. 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 She was on Protonix daily and it reportedly did well. For some reason, she states that she was switched over to Nexium which worked but then she was switched over to the generic of Nexium and she states that the generic form does not work. She states that she has severe heartburn that is uncontrolled. She states that her primary care provider is attempting to get her name brand Nexium through her insurance company but has been unsuccessful thus far. After discussion with surgery, family is going to purchase Nexium [id number] and assess her response. (7) DVT prophylaxis Priority: Primary Status: Acute Comments: Subcutaneous heparin while admitted - Discharge Medications Prescriptions: Albuterol Sulfate [Albuterol Inhaler] 2 puff IH Q4HR PRN #1 hfa.aer.ad PRN Reason: Shortness Of Breath Nitroglycerin [Nitrostat] 0.4 mg SL Q5M PRN #30 PRN Reason: Chest Pain Tiotropium Br/Olodaterol HCl [Stiolto Respimat Inhal [place]] 4 gm IH DAILY #1 mist.inhal Home Medications: Aspirin 81 mg PO HS 03/01/17 [History] Atorvastatin [Lipitor] 40 mg PO HS 03/01/17 [History] Calcium Carb/D3/Magnesium/Zinc [Philip Mag Zinc + D Tablet] 1 tab PO DAILY [History] Cholecalciferol (Vitamin D3) [Vitamin D3] 5,000 unit PO DAILY 03/01/17 [History] Ferrous Sulfate [Iron] 325 mg PO DAILY 03/01/17 [History] Furosemide [Lasix] 10 mg PO DAILY 03/01/17 [History] Isosorbide MONOnitrate [Isosorbide Mononitrate] 20 mg PO DAILY 03/01/17 [History ] Potassium 99 mg PO DAILY 03/01/17 [History] Acetaminophen [Tylenol] 1,000 mg PO HS 07/17/17 [History] DULoxetine [Cymbalta] 30 mg PO DAILY 07/17/17 [History] Esomeprazole Magnesium [Nexium] 40 mg PO DAILY 07/17/17 [History] Latanoprost [Xalatan] 1 drop OP HS 07/17/17 [History] Magnesium 250 mg PO DAILY 07/17/17 [History] Valsartan 40 mg PO DAILY 07/17/17 [History] Albuterol Sulfate [Albuterol Inhaler] 2 puff IH Q4HR PRN #1 hfa.aer.ad 07/19/17 [Rx] Nitroglycerin [Nitrostat] 0.4 mg SL Q5M PRN #30 07/19/17 [Rx] Tiotropium Br/Olodaterol HCl [Stiolto Respimat Inhal [place]] 4 gm IH DAILY #1 mist.inhal 07/19/17 [Rx] Allergies/Adverse Reactions: 3 Allergy/AdvReac Type Severity Reaction Status Date / Time acetaminophen Allergy Nausea Verified 03/01/17 08:01 [From Darvocet-N] Amoxicillin [From Augmentin] Allergy Diarrhea Verified 03/01/17 08:01 clavulanic acid Allergy Diarrhea Verified 03/01/17 08:01 [From Augmentin] codeine Allergy Itching Verified 03/01/17 08:01 propoxyphene Allergy Nausea Verified 03/01/17 08:01 [From Darvocet-N] Hydralazine AdvReac Hypotension Verified 07/17/17 23:54 Procedures/tests Complete & Pending: Procedures Performed prior 72 hours Category Date Time Status NM tray perf SPECT multi [NM] Routine Exams 07/17/17 23:55 Taken US gall bladder [US] Routine Exams 07/19/17 08:00 Completed EV echocardiogram Routine Y 07/18/17 23:55 Completed SP pharm nuclear stress Routine Y 07/18/17 07:20 Completed Date of admission: 07/17/17 22:22 Primary care physician: Radha Ayala CNP Consults: 07/17/17 23:47 Consult to Water/Wastewater Project Engineer [CONS] Routine Reason for SW Consult: recent falls 07/18/17 11:51 Consult to Occupational Therapy [CONS] Routine Comment: Evaluate, develop and implement POC Reason for Consult: increased falls Consult to Physical Therapy [CONS] Routine Comment: Evaluate, develop and implement POC Reason for Consult: increased falls 07/18/17 16:31 Consult to Surgery [CONS] Routine Consulting Provider: Geovany Regalado Reason for Consult: patient with moderate hiatal hernia, now large. Here for CP. cardiac etiology ruled out. Initial plan was for outpatient followup- family demanding to see surgery. EGD per Dr Wiley February 2017 Time Notified: 16:33 Call Completed: Yes Discharging clinician: Blaire Florez Anticipated date of discharge: 07/19/17 (with [facility]) - Patient Status Disposition: Home Health Service Condition: Good Functional capacity at discharge: uses cane/walker Overall status at discharge: patient is progressing back to baseline - Discharge Instructions Follow Up With: Radha Ayala CNP [Primary Care Provider] - Surgery [facility] [Provider Group] Additional Instructions: I will up with primary care provider within one to 2 weeks. Follow-up with surgery as scheduled - Diet and Activity Activity: as per physical therapy, increase activity as tolerated Diet: low fat, low cholesterol, low salt diet Hospital course: Ms. Delong is a 77 year old female with past medical history of hypertension, GERD, CAD status post stent, hiatal hernia, anxiety. Patient presented to the emergency department chief complaint of chest pain. Patient stated the chest pain started 3 days prior to presentation and she described it as pressure, constant, and radiating to her upper abdomen into her back. She also endorsed shortness of breath, nausea, and occasional lightheadedness. She denied any palpitations, coughing, fever, vomiting. Workup in the emergency department revealing mildly elevated d-dimer. EKG without acute processes. Chest x-ray negative. CTA unremarkable for PE but did reveal gallbladder wall thickening and a slight increase to the size of her chronic hiatal hernia. She was admitted to the hospitalist service for further evaluation and management. Troponins negative 3. Echocardiogram unremarkable with ejection fraction of 60 % and mild diastolic dysfunction. Patient was euvolemic on examination and denied shortness of breath above her norm during this admission. Stress test was negative. And acute coronary syndrome was ruled out. Gallbladder ultrasound was obtained and was unremarkable. Abdominal labs including lipase, bilirubin, LFTs all normal. Initial plan was to discharge however the patient and family requested to see surgery regarding her hiatal hernia. Surgery saw the patient and cleared her for outpatient follow-up with a tentative plan to perform an outpatient EGD and follow up with her surgeon Dr. Wiley for further evaluation. Regarding her chronic GERD, she states that is currently uncontrolled. She states that she was switched over to the generic brand of her medication and states it has not worked. After much discussion with the family, they are going to purchase Nexium [id number]. Family was also concerned because the patient had increased falls recently. She was seen and evaluated by occupational and physical therapy both of whom recommended home health services. She was able to tolerate a regular diet prior to discharge and her pain had dissipated on day of discharge. She was discharged home in stable condition with close outpatient follow-up recommended. ITS Impressions Chest X-Ray 07/17/17 17:52 IMPRESSION: No acute abnormality detected. D/ / Jam Atkinson MD / Jam Atkinson MD Interpreting Provider: Jam Atkinson MD Chest CTA 07/17/17 19:06 IMPRESSION: No evidence of pulmonary embolism or acute pulmonary abnormality. Stable right upper lobe scarring. The gallbladder wall appears diffusely thickened. Gallbladder was incompletely visualized. Follow-up gallbladder ultrasound after fasting may be helpful. D/ / Nestor Silva MD / Nestor Silva MD Interpreting Provider: Nestor Silva MD Gallbladder Ultrasound 07/19/17 08:00 IMPRESSION: Increased echogenicity of the liver which can be seen in fatty change. Mild gallbladder wall thickening measuring up to 6 mm. No biliary dilatation. No pericholecystic fluid or cholelithiasis. D/ / Kellie Barlow MD / Kellie Barlow MD Interpreting Provider: Kellie Barlow MD Echocardiogram Date of Study: 07/18/2017 Impressions: LVEF 60%. Normal left ventricular size and systolic function. There is evidence of mild diastolic dysfunction of the left ventricle. Normal right ventricular size and function. Mild mitral regurgitation. Mild tricuspid regurgitation. Mild-moderate pulmonic regurgitation. No pulmonary hypertension. Regadenoson Nuclear Stress Date of Study: 07/18/2017 Impression: Perfusion imaging was negative for ischemia or infarct. No appreciable change in pharmacologic ECG from baseline. Gated EF = >70%. - Time Spent with Patient Total time spent providing and/or coordinating discharge services: - Constitutional Vitals: Temp Pulse Resp BP Pulse Ox 97.6 F 75 14 130/77 98 07/19/17 14:56 07/19/17 14:56 07/19/17 14:56 07/19/17 14:56 07/19/17 14:56 General appearance: Present: A&O X 3, pleasant, no acute distress, answers questions appropriately - Head Head exam: Present: atraumatic, normocephalic - Eye Eye exam: Present: PERRL, conjuntiva pink, sclera anicteric Pupils: Present: PERRL - Neck Neck exam general surgery: Present: supple, trachea midline. Absent: lymphadenopathy - Respiratory Respiratory exam: Present: CTAB. Absent: accessory muscle use, rales, respiratory distress, rhonchi, wheezes - Cardiovascular Cardiovascular exam: Present: RRR, +S1, +S2. Absent: diastolic murmur, gallop, rubs, systolic murmur - GI/Abdominal GI/Abdominal exam: Present: normal bowel sounds, soft, tenderness, no peritoneal signs. Absent: distended - Extremities Exam Extremities exam: Present: warm, radial pulses palpable and symmetrical. Absent : calf tenderness, cyanotic, pedal edema - Neurological Exam Neurological exam: Present: alert, CN II-XII intact, normal gait, oriented X3, no focal deficits, strengths equal and symetr throughout. Absent: pronater drift, facial droop, speech deficit - Skin Skin exam: Present: dry, intact, pallor, warm
--- NOTE | 2017-07-19 16:34 | Physician Discharge Referral ---
Home Health/Hosp Referral Info Transfer to: Home Health Attending Provider: Jewel Florez CNP Provider in Charge Post Discharge: PCP - Diagnosis (1) Atypical chest pain Priority: Primary Status: Resolved (2) Hiatal hernia Priority: Secondary Status: Chronic (3) Anxiety about health Priority: Secondary Status: Chronic (4) Falls frequently Priority: Primary Status: Acute (5) Coronary artery disease Priority: Secondary Status: Chronic (6) GERD (gastroesophageal reflux disease) Priority: Secondary Status: Chronic (7) DVT prophylaxis Priority: Primary Status: Acute - Respiratory Orders Smoking Cessation: Smoking cessation has been advised. For more information, call the [place] Tobacco Quit Line at 8-508-PJWH-NOW. - Diet/Nutrition Diet/Nutrition Orders: No Added Salt (KAPIL) - Activity Activity Orders: Ambulate (per PT) - Services Needed Following services are medically necessary services: Nursing, Home Health Aide, Physical Therapy, Occupational Therapy - Transfer Medications Prescriptions: Albuterol Sulfate [Albuterol Inhaler] 2 puff IH Q4HR PRN #1 hfa.aer.ad PRN Reason: Shortness Of Breath Nitroglycerin [Nitrostat] 0.4 mg SL Q5M PRN #30 PRN Reason: Chest Pain Tiotropium Br/Olodaterol HCl [Stiolto Respimat Inhal [place]] 4 gm IH DAILY #1 mist.inhal Home Medications: Aspirin 81 mg PO HS 03/01/17 [History] Atorvastatin [Lipitor] 40 mg PO HS 03/01/17 [History] Calcium Carb/D3/Magnesium/Zinc [Philip Mag Zinc + D Tablet] 1 tab PO DAILY [History] Cholecalciferol (Vitamin D3) [Vitamin D3] 5,000 unit PO DAILY 03/01/17 [History] Ferrous Sulfate [Iron] 325 mg PO DAILY 03/01/17 [History] Furosemide [Lasix] 10 mg PO DAILY 03/01/17 [History] Isosorbide MONOnitrate [Isosorbide Mononitrate] 20 mg PO DAILY 03/01/17 [History ] Potassium 99 mg PO DAILY 03/01/17 [History] Acetaminophen [Tylenol] 1,000 mg PO HS 07/17/17 [History] DULoxetine [Cymbalta] 30 mg PO DAILY 07/17/17 [History] Esomeprazole Magnesium [Nexium] 40 mg PO DAILY 07/17/17 [History] Latanoprost [Xalatan] 1 drop OP HS 07/17/17 [History] Magnesium 250 mg PO DAILY 07/17/17 [History] Valsartan 40 mg PO DAILY 07/17/17 [History] Albuterol Sulfate [Albuterol Inhaler] 2 puff IH Q4HR PRN #1 hfa.aer.ad 07/19/17 [Rx] Nitroglycerin [Nitrostat] 0.4 mg SL Q5M PRN #30 07/19/17 [Rx] Tiotropium Br/Olodaterol HCl [Stiolto Respimat Inhal [place]] 4 gm IH DAILY #1 mist.inhal 07/19/17 [Rx] Allergies/Adverse Reactions: 3 Allergy/AdvReac Type Severity Reaction Status Date / Time acetaminophen Allergy Nausea Verified 03/01/17 08:01 [From Darvocet-N] Amoxicillin [From Augmentin] Allergy Diarrhea Verified 03/01/17 08:01 clavulanic acid Allergy Diarrhea Verified 03/01/17 08:01 [From Augmentin] codeine Allergy Itching Verified 03/01/17 08:01 propoxyphene Allergy Nausea Verified 03/01/17 08:01 [From Darvocet-N] Hydralazine AdvReac Hypotension Verified 07/17/17 23:54 Certification: Further, I certify that my clinical findings support that this patient is homebound (i.e. absences from home require considerable and taxing effort and are for medical reasons or restorationist services or infrequently or short duration when for other reasons) because: Homebound Reason: Patient requires assistance of a person or device to safely leave home, Leaving home requires considerable and taxing effort due to condition Attestation: My signature below is to certify that this patient is under my care and that I, or nurse practitioner, or a physician's business assistant working with me, has a face-to -face encounter with this patient.
== END 2017-07-19 17:45 | disposition home health service (06) ==
LOC: EMEROO 17:14 → 3BNU 17:14
PROVIDERS: ADMIT Internal Medicine; ATTEND Nurse Practitioner Family

== ENCOUNTER 2017-08-29 10:39 | Inpatient (IN) ==
[2017-08-29] MEDS ORDERED: *HR* FentaNYL (PF) 100 MCG/2 ML VIAL ONE (10:44)
[2017-08-29] MEDS ORDERED: *HR* Propofol 200 MG/20 ML VIAL IVP ONE (10:44)
[2017-08-29] MEDS ORDERED: Lidocaine -MPF 2% 2 ML VIAL ONE ×2 (10:46→10:54)
[2017-08-29] MEDS ORDERED: Neostigmine Methylsulfate 3 MG/3 ML SYRINGE ONE ×2 (10:51→13:38)
[2017-08-29] MEDS ORDERED: *HR* Midazolam HCl 2 MG/2 ML VIAL ONE (10:54)
[2017-08-29] MEDS ORDERED: Acetaminophen IV 1,000 MG/100 ML INFUS..BTL ONE (10:54)
[2017-08-29] MEDS ORDERED: *HR* Succinylcholine 200 MG/10 ML VIAL IVP ONE (10:54)
[2017-08-29] MEDS ORDERED: Ringers Solution, Lactated 1,000 ML IVC SCH (11:00)
[2017-08-29] MEDS ORDERED: Lidocaine -MPF 4% 5 ML AMPUL ONE (11:01)
[2017-08-29] MEDS ORDERED: CeFAZolin Pre 2,000 MG/100 ML 2,000 MG/100 ML BAG IVPB ONE (11:19)
--- NOTE | 2017-08-29 11:25 | History & Physical Report ---
Date of Encounter: 08/29/17 Time of Encounter: 11:25 24 Hour HP Update - Instructions Instructions: If the History and Physical is less than 30 days old and was completed prior to A.M. admission and or procedure and has NOT been updated on calendar day of procedure please complete this update prior to performing procedure. - Update Patient reports changes in Medical Condition: No Changes in examination, assessment, or condition: No Changes in Medication: No Preop tests/diagnostics Reviewed: Yes Surgery Remains Indicated: Yes Consent for Planned Operative Procedure(s) Verified: Yes - Pre-Operative Checklist Preoperative Checklist Indicated: Yes Prophylactic Antibiotic Ordered: Yes Home Medications Include Beta Phil: No Is VTE Prophylaxis Indicated?: Yes
--- NOTE | 2017-08-29 11:36 | Anesthesia Evaluation PreOp ---
Date of Encounter: 08/29/17 Time of Encounter: 11:33 - Past History Planned Operation: Open Serene Cardiac History: HTN, Cardiac Stent (CAD s/p stents, stress 06/2017 Impression: Perfusion imaging was negative for ischemia or infarct. No appreciable change in pharmacologic ECG from baseline. Gated EF = >70%.) Pulmonary History: Denies Any Significant HX STAIN MAKER History: Denies Any Significant HX Other Medical History: Denies Any Significant HX Anesthesia History: No Prior Anesthetic Complications, Past Anesthesia ( angioplasty/stent, appendectomy, hysterectomy, knee replacement, orthopedic) Alcohol Use: occasionally Drug use: none Medications and Allergies Aspirin 81 mg PO HS 03/01/17 [History] Atorvastatin [Lipitor] 40 mg PO HS 03/01/17 [History] Cholecalciferol (Vitamin D3) [Vitamin D3] 5,000 unit PO DAILY 03/01/17 [History] Ferrous Sulfate [Iron] 325 mg PO DAILY 03/01/17 [History] Furosemide [Lasix] 10 mg PO DAILY PRN 03/01/17 [History] Isosorbide MONOnitrate [Isosorbide Mononitrate] 20 mg PO DAILY 03/01/17 [History ] Potassium 99 mg PO DAILY 03/01/17 [History] Acetaminophen [Tylenol] 1,000 mg PO HS 07/17/17 [History] Esomeprazole Magnesium [Nexium] 40 mg PO DAILY 07/17/17 [History] Latanoprost [Xalatan] 1 drop LEFT EYE HS 07/17/17 [History] Valsartan 40 mg PO DAILY 07/17/17 [History] Albuterol Sulfate [Albuterol Inhaler] 2 puff IH Q4HR PRN #1 hfa.aer.ad 07/19/17 [Rx] Nitroglycerin [Nitrostat] 0.4 mg SL Q5M PRN #30 07/19/17 [Rx] Ascorbate Calcium [Vitamin C] 500 mg PO DAILY 08/29/17 [History] Esomeprazole Magnesium [Nexium 24Hr] 22.3 mg PO DAILY 08/29/17 [History] Tiotropium Br/Olodaterol HCl [Stiolto Respimat Inhal [place]] 2 puff IH DAILY 04/10 [History] l Acidophil/B Lactis/B Longum [Florajen3 Capsule] 460 mg PO DAILY 08/29/17 [ History] 3 Allergy/AdvReac Type Severity Reaction Status Date / Time acetaminophen Allergy Nausea Verified 08/29/17 11:07 [From Darvocet-N] Amoxicillin [From Augmentin] Allergy Diarrhea Verified 08/29/17 11:07 clavulanic acid Allergy Diarrhea Verified 08/29/17 11:07 [From Augmentin] codeine Allergy Itching Verified 08/29/17 11:07 propoxyphene Allergy Nausea Verified 08/29/17 11:07 [From Darvocet-N] Hydralazine AdvReac Hypotension Verified 08/29/17 11:07 - Meds/Allergy Pre-op Review Medications Reviewed: Yes Allergies Reviewed: Yes Beta Blockers on Current Med List: No Anesthesia Results - Labs Laboratory Tests 05/21/15 07/19/17 07/19/17 05:21 02:59 02:59 WBC Hgb Hct Plt Count PT 10.8 PTT 27.8 INR 1.0 Sodium Potassium Chloride Carbon Dioxide BUN 18 Creatinine 0.76 Glucose 96 POC Glucose 07/19/17 08/19/17 08/19/17 16:02 15:18 15:18 WBC 6.5 Hgb 11.4 L Hct 33.7 L Plt Count 259 PT PTT INR Sodium 131 L Potassium 4.0 Chloride 98 Carbon Dioxide 25 BUN Creatinine Glucose POC Glucose 156 H - Imaging EKG: report reviewed (NSR) Anesthesia Exam O2 Sat Height 1.6 m Weight 59.874 kg O2 Sat by Pulse Oximetry 100 Vital Signs Temp Pulse Resp BP Pulse Ox 97.7 F 70 16 144/70 100 08/29/17 11:11 08/29/17 11:11 08/29/17 11:11 08/29/17 11:11 08/29/17 11:11 Height: 1.6m Weight: 59kg NPO (# of Hours): >8 Pain Scale: 0 Pain Scale Used: Numeric (1 - 10) - HEENT Pupil (Motor): Pupils equal, EOMI Mallampati: I Oral Opening: Greater than 3 - STAIN MAKER LOC: Oriented STAIN MAKER Motor: Normal RUE, Normal LUE, Normal RLE, Normal LLE, Normal Face STAIN MAKER Sensory: Normal: RUE, LUE, RLE, LLE, Face - Cardiac Rhythm: Regular - Pulmonary Breath Sounds: bilateral Clear Respiratory Effort: Symmetrical Anesthesia Assess/Plan ASA Score: 3 Modified Isadora Scale for Level of Consciousness: Cooperative, oriented, and tranquil Anesthetic Plan: General (plan RSI r/b/a discussed, questions answered, consent obtained) Monitoring Plan: Standard Monitors Recovery Plan: PACU
[2017-08-29] MEDS ORDERED: EPHEDrine 50 MG/ML VIAL ONE (12:21)
[2017-08-29] MEDS ORDERED: *HR* Rocuronium Bromide 50 MG/5 ML VIAL ONE (12:27)
[2017-08-29] MEDS ORDERED: Esmolol 100 MG/10 ML VIAL IVP ONE (12:36)
[2017-08-29] MEDS ORDERED: *HR* Labetalol 20 MG/4 ML SYRINGE IVP PRN (12:42)
[2017-08-29] MEDS ORDERED: Ondansetron 4 MG/2 ML VIAL IVP PRN ×3 (12:42→15:42)
[2017-08-29] MEDS ORDERED: Dexamethasone 4 MG/ML VIAL ONE (13:03)
[2017-08-29] MEDS ORDERED: Ondansetron 4 MG/2 ML VIAL ONE (13:03)
[2017-08-29] MEDS ORDERED: Ketorolac 30 MG/ML VIAL ONE (13:43)
[2017-08-29] MEDS ORDERED: *HR* HYDROmorphone (PF) 1 MG/ML SYRINGE ONE ×3 (14:01→14:34)
--- NOTE | 2017-08-29 14:06 | Operative Note ---
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 Serene fundoplication Complications: none Anesthesia: ARIANE Surgeon: Otilio Chan Estimated blood loss (cc): 25 Specimen: hernia sac Condition: stable Disposition: PACU Procedure in Detail: After informed consent the patient was taken to the major operative suite and placed in supine position and given adequate general endotracheal anesthesia. Timeout was taken in the fascia was identified. A midline vertical midline incision. The abdomen was entered. 50% or greater of the stomach was in the chest. The stomach was brought back into the abdomen. There were dense adhesions and hernia sacs drawing the stomach back up in the mediastinum. These would need to be addressed. I completely mobilized the lateral segment of the left lobe by dividing the triangular ligament. The left lateral segment was retracted inferiorly and to the right. I then began dividing the hernia sac along the anterior aspect of the hiatus opening. The hernia sac was circumferentially removed from the chest and brought into the abdomen. There is an enormous amount of redundant tissue anteriorly and laterally. This was all removed under direct vision. The greater curvature of the stomach was mobilized by dividing the short gastrics with Harmonic scalpel and surgical clips. I was able to identify the right jalen of the diaphragm and after the lateral dissection the left jalen the diaphragm. I placed a Gregoria drain around the gastroesophageal junction and retracted stomach laterally. I then close the very large hiatal hernia with 5 pledgeted stitches of 2-0 Ethibond. This gave a perfect technical result. The esophageal dissection and hiatal closure was done around a 56-Telugu bougie. The cardia was then brought behind the gastroesophageal junction and I used a drop test and a shoeshine test to make sure there was no tension. The Serene fundoplication was created using 3 stitches of 2-0 Ethibond with pledgets. This gave an excellent technical result. The Serene fundoplication was then attached to the diaphragm with 2 shoulder stitches of 2-0 silk. This completed the repair. Overall blood loss 25 mL. The abdomen was irrigated with copious amounts of antibiotic containing solution. The midline was closed with looped 0 PDS. An was closed with interrupted Vicryl and skin clips.
[2017-08-29] MEDS: *HR* HYDROmorphone (PF) 1 MG/ML SYRINGE IVP PRN ×6 (14:10→19:25)
[2017-08-29] MEDS ORDERED: *HR* HYDROmorphone (PF) 1 MG/ML SYRINGE IVP PRN (14:17)
[2017-08-29] MEDS ORDERED: 0.9 % Sodium Chloride 1,000 ML IVC SCH (14:30)
--- NOTE | 2017-08-29 14:57 | Anesthesia Evaluation Post Op ---
Date of Encounter: 08/29/17 Time of Encounter: 14:56 - Vital Signs Vital Signs: Vital Signs/O2 Sat, Most Current Temp Pulse Resp BP Pulse Ox 97.0 F L 68 16 134/60 100 08/29/17 14:29 08/29/17 14:41 08/29/17 14:41 08/29/17 14:39 08/29/17 14:41 - Lungs Lungs: Clear Ascult./Percussion - Airway Airway: Non-obstructed - Cardiovascular Regular Rate - Mental Status Mental Status: Alert & Oriented, Answers Appropriately - Pain Pain Scale: 0 Pain Scale used: Numeric (1 - 10) - Nausea Vomiting Nausea Vomiting: Not Present - Hydration Hydration: NPO - Discharge PostOp Status: Transfer Patient to floor Attestation: I have assessed this patient and find they meet discharge criteria.
[2017-08-29] MEDS ORDERED: Nitroglycerin 0.4 MG TAB.SUBL SL PRN (15:42)
[2017-08-29] MEDS ORDERED: Furosemide 20 MG TABLET PO PRN (15:42)
[2017-08-29] MEDS ORDERED: ceFAZolin 2,000 MG in D5% in Water 100 ML IVPB SCH (16:00)
[2017-08-29] MEDS: ceFAZolin 2,000 MG in D5% in Water 100 ML IVPB SCH ×2 (17:01→23:16)
[2017-08-29] MEDS: *HR* Heparin 5,000 UNIT/ML VIAL SQ SCH (17:02)
[2017-08-29] MEDS: 0.9 % Sodium Chloride 1,000 ML IVC SCH (17:02)
[2017-08-29] MEDS ORDERED: *HR* Heparin 5,000 UNIT/ML VIAL SQ SCH (18:00)
[2017-08-29] MEDS: Aspirin 81 MG TAB.CHEW PO SCH (21:32)
[2017-08-29] MEDS: Latanoprost 2.5 ML BOTTLE LEFT EYE SCH (21:33)
[2017-08-30] MEDS: *HR* HYDROmorphone (PF) 1 MG/ML SYRINGE IVP PRN ×7 (00:17→17:23)
[2017-08-30] MEDS: *HR* Heparin 5,000 UNIT/ML VIAL SQ SCH ×2 (05:41→20:18)
[2017-08-30] MEDS: Pantoprazole 40 MG VIAL IVP SCH (07:10)
[2017-08-30] MEDS ORDERED: Pantoprazole 40 MG VIAL IVP SCH (09:00)
[2017-08-30] MEDS: Valsartan 80 MG TABLET PO SCH ×2 (10:15→10:40)
--- NOTE | 2017-08-30 12:04 | General Surgery Progress Note ---
<Socorro Wu - Last Filed: 08/30/17 12:02> Date of Encounter: 08/30/17 Time of Encounter: 12:00 - Assessment and Plan (1) Hiatal hernia Current Visit: No Status: Chronic s/p Open Serene (08/29/2017); incision is clean, dry, intact. There is a small amount of ecchymosis in the periumbilical area. Faint bowel sounds. Denies n/v, flatus, or BM. Plan: -Continue supportive care and discomfort management Will add p.o. pain medication when she is tolerating p.o. -Clear liquids for lunch today Will decrease MIV when tolerating p.o. -Out of bed with assistance TID -PT/OT eval and treat (pt states frequent falls and difficulty walking prior to admission) -Wound care daily: Remove dressing. Wash with soap and water. Pat dry. Cover with dry dressing for comfort. Tape to secure. May leave open to air if desired. -Continue GI prophylaxis -Continue DVT prophylaxis Remain admitted through the , will reassess d/c planning on Saturday (2) Falls frequently Current Visit: Yes Status: Chronic PT/OT eval and treat. See above (3) GERD (gastroesophageal reflux disease) Current Visit: Yes Status: Chronic See above Qualifiers: Esophagitis presence: with esophagitis Qualified Code(s): K21.0 - Gastro- esophageal reflux disease with esophagitis (4) DVT prophylaxis Current Visit: Yes Status: Acute Heparin sub Q injections 5000 units BID Subjective Patient reports: feels better, still having pain, pain is less, voiding w/o difficulty, no flatus, no bowel movement, afebrile Objective Vital Signs - Last 8 Hours Temp Pulse Resp BP Pulse Ox 08/30/17 11:16 98.0 F 87 16 120/70 99 08/30/17 07:31 98.0 F 88 18 108/65 99 08/30/17 04:49 97.7 F 92 16 131/76 97 Intake and Output 08/29/17 08/30/17 08/30/17 23:59 07:59 15:59 Intake Total 100 / 100 100 / 100 60 / 60 Output Total 100 / 100 0 / 0 450 / 450 Balance 0 / 0 100 / 100 -390 / -390 Intake: IV Fluids 100 / 100 100 / 100 Ancef 2,000 MG In Dextrose 5% 100 / 100 100 / 100 100 ML @ 200 mls/hr IVPB Q8HR VIV Rx#:[id number] Oral 0 / 0 0 / 0 60 / 60 Output: Urine 100 / 100 0 / 0 450 / 450 Other: Meal ice chips Percent of Meal Consumed 0% Weight 65.5 kg Blood Glucose* 115 115 Patient Weight 08/30/17 23:59 Weight 65.5 kg - General physical appearance well nourished, no distress, moderate pain - Eyes normal ocular movement - ENT atraumatic, normocephalic - Neck Neck exam: trachea midline, no venous distension - Respiratory normal expansion, normal respiratory effort, clear to auscultation - Cardiovascular Cardiovascular exam: Present: RRR, murmurs - Abdomen Abdomen: Present: bowel sounds present (Faint at best), soft, non tender Hernia: none - Incision Incision: Present: clean and dry, intact - Integumentary no rash - Neurologic CN 2-12 grossly intact, normal sensation - Musculoskeletal normal posture - Psychiatric oriented to time, oriented to person, oriented to place, speech is normal, memory intact - VTE Documentation of Mechanical Device: Intermittent pneumatic compression device Consult Discharge Plan - Plan Referrals: Otilio Chan MD [Partnered Physician] - 09/11/17 3:15 pm Radha Ayala CNP [Primary Care Provider] - <Otilio Chan - Last Filed: 08/30/17 15:00> Date of Encounter: 08/30/17 Objective Vital Signs - Last 8 Hours Temp Pulse Resp BP Pulse Ox 08/30/17 11:16 98.0 F 87 16 120/70 99 08/30/17 07:31 98.0 F 88 18 108/65 99 Intake and Output 08/29/17 08/30/17 08/30/17 23:59 07:59 15:59 Intake Total 100 / 100 100 / 100 300 / 300 Output Total 100 / 100 0 / 0 450 / 450 Balance 0 / 0 100 / 100 -150 / -150 Intake: IV Fluids 100 / 100 100 / 100 Ancef 2,000 MG In Dextrose 5% 100 / 100 100 / 100 100 ML @ 200 mls/hr IVPB Q8HR VIV Rx#:[id number] Oral 0 / 0 0 / 0 300 / 300 Output: Urine 100 / 100 0 / 0 450 / 450 Other: Meal Lunch Percent of Meal Consumed 0% Weight 65.5 kg Blood Glucose* 115 115 Patient Weight 08/30/17 23:59 Weight 65.5 kg - Attending Attestation I examined this patient and my medical decision-making was reviewed with the Resident Physician. I agree with the documented findings, disposition and treatment plan as described except to the extent set forth below. The patient was seen and evaluated with the resident pounds. She is somewhat short of breath. She is complaining of incisional pain. Oxygen saturations are good and her lungs are clear to auscultation. Should be able to start clear liquids later today area Otilio Chan MD FACS
[2017-08-30] MEDS ORDERED: *HR* HYDROmorphone (PF) 1 MG/ML SYRINGE IVP PRN (17:41)
[2017-08-30] MEDS: 0.9 % Sodium Chloride 1,000 ML IVC SCH ×2 (17:42→21:09)
[2017-08-30] MEDS: Ondansetron 4 MG/2 ML VIAL IVP SCH ×2 (17:42→21:04)
[2017-08-30] MEDS ORDERED: ALPRAZolam 0.5 MG TABLET PO PRN (17:47)
[2017-08-30] MEDS: Ketorolac 15 MG/ML VIAL IVP PRN (19:54)
[2017-08-30] MEDS: Aspirin 81 MG TAB.CHEW PO SCH (21:04)
[2017-08-30] MEDS: Latanoprost 2.5 ML BOTTLE LEFT EYE SCH (23:59)
[2017-08-31] MEDS: Ondansetron 4 MG/2 ML VIAL IVP SCH ×2 (00:12→04:02)
[2017-08-31] MEDS: Ketorolac 15 MG/ML VIAL IVP PRN ×2 (03:58→10:28)
[2017-08-31 04:09] LABS: Basophils # 0.1 K/mcL (0.0-0.2); Basophils % 0.5 %; Eosinophils % 0.2 %; Hematocrit 31.9 % (35.3-44.9); Hemoglobin 10.3 g/dL (11.5-15.4); Immature Granulocytes % 0.3 % (0-4); Lymphocytes # 2.1 K/mcL (0.6-4.6); Lymphocytes % 19.4 %; Mean Corpuscular HGB Conc 32.3 g/dL (31.6-35.5); Mean Corpuscular Hemoglobin 32.3 pg (28.0-33.3); Mean Platelet Volume 9.1 fL (9.4-12.4); Monocytes # 1.3 K/mcL (0.0-1.3); Monocytes % 11.8 %; Neutrophils # 7.4 K/mcL (1.6-8.9); Platelet Count 196 K/mcL (140-400); Red Blood Count 3.19 M/mcL (3.82-4.97); Red Cell Distribution Width 12.4 % (11.5-14.5); Segmented Neutrophils % 67.8 %
[2017-08-31 04:42] LABS: BUN/Creatinine Ratio 22 (6-26); Blood Urea Nitrogen 15 mg/dL (7-20); Calcium 8.7 mg/dL (8.6-10.8); Carbon Dioxide 26 mEq/L (19-29); Chloride 107 mEq/L (98-109); Glucose 100 mg/dL (70-99); Osmolality,Calculated 287 (280-300); Potassium 4.2 mEq/L (3.5-4.5); Sodium 138 mEq/L (136-145); eGFR For African Americans > 60 (> 60); eGFR For Non-African Americans > 60 (> 60)
[2017-08-31] MEDS: *HR* Heparin 5,000 UNIT/ML VIAL SQ SCH ×3 (06:09→18:36)
--- NOTE | 2017-08-31 07:32 | General Surgery Progress Note ---
Date of Encounter: 08/31/17 Time of Encounter: 07:29 - Assessment and Plan (1) Hiatal hernia Current Visit: Yes Status: Chronic 77F POD #2 s/p open hiatal hernia repair; currently controlled and non septic - cont CLD - pain control: PO pain meds before IV pain meds - activity as tolerated, at least OOBTC for 4hrs at a time - change IVF to MIVF (d51/2NS+20K) at 75cc (2) GERD (gastroesophageal reflux disease) Current Visit: Yes Status: Chronic see above PPI Qualifiers: Esophagitis presence: with esophagitis Qualified Code(s): K21.0 - Gastro- esophageal reflux disease with esophagitis (3) DVT prophylaxis Current Visit: Yes Status: Acute cont current regimen: lovenox OOBTC, ambulate (4) Falls frequently Current Visit: Yes Status: Chronic PT/OT; f/u with their assessment ambulate with assistance Subjective Patient reports: no new complaints, feels better, still having pain, pain is less (no acute events overnight; pain tolerable; voiding) Objective Vital Signs - Last 8 Hours Temp Pulse Resp BP Pulse Ox 08/31/17 06:41 97.8 F 88 15 147/72 96 08/31/17 03:50 98.8 F 87 14 156/73 98 08/31/17 00:30 98.4 F 89 16 129/71 98 Intake and Output 08/30/17 08/30/17 08/31/17 15:59 23:59 07:59 Intake Total 300 / 300 1240 / 1240 0 / 0 Output Total 450 / 450 0 / 0 0 / 0 Balance -150 / -150 1240 / 1240 0 / 0 Intake: IV Fluids 1000 / 1000 0.9 % Sodium Chloride 1,000 ML 1000 / 1000 @ 75 mls/hr IVC .[id number] VIV Rx #:[id number] Oral 300 / 300 240 / 240 0 / 0 Output: Urine 450 / 450 0 / 0 0 / 0 Other: Meal Lunch Dinner Percent of Meal Consumed 0% 10% # Bowel Movements 0 Blood Glucose* 115 - General physical appearance well developed, well nourished, no distress - Respiratory normal expansion, normal respiratory effort, clear to auscultation - Cardiovascular Cardiovascular exam: Present: RRR - Abdomen Abdomen: Present: soft, tender (appropriately tender; non peritoneal) Hernia: none - Incision Incision: Present: clean and dry, intact - Neurologic CN 2-12 grossly intact - Psychiatric oriented to time, oriented to person, oriented to place - Labs 08/31/17 03:16 08/31/17 03:16 Diabetes panel 08/31/17 Range/Units 03:16 Sodium 138 (136-145) mEq/L Potassium 4.2 (3.5-4.5) mEq/L Chloride 107 (98-109) mEq/L Carbon Dioxide 26 (19-29) mEq/L BUN 15 (7-20) mg/dL Creatinine 0.69 (0.57-1.11) mg/dL Glucose 100 H (70-99) mg/dL Calcium 8.7 (8.6-10.8) mg/dL Calcium panel 08/31/17 Range/Units 03:16 Calcium 8.7 (8.6-10.8) mg/dL Pituitary panel 08/31/17 Range/Units 03:16 Sodium 138 (136-145) mEq/L Potassium 4.2 (3.5-4.5) mEq/L Chloride 107 (98-109) mEq/L Carbon Dioxide 26 (19-29) mEq/L BUN 15 (7-20) mg/dL Creatinine 0.69 (0.57-1.11) mg/dL Glucose 100 H (70-99) mg/dL Calcium 8.7 (8.6-10.8) mg/dL Adrenal panel 08/31/17 Range/Units 03:16 Sodium 138 (136-145) mEq/L Potassium 4.2 (3.5-4.5) mEq/L Chloride 107 (98-109) mEq/L Carbon Dioxide 26 (19-29) mEq/L BUN 15 (7-20) mg/dL Creatinine 0.69 (0.57-1.11) mg/dL Glucose 100 H (70-99) mg/dL Calcium 8.7 (8.6-10.8) mg/dL - VTE Documentation of Mechanical Device: Intermittent pneumatic compression device Consult Discharge Plan - Plan Referrals: Otilio Chan MD [Partnered Physician] - 09/11/17 3:15 pm Radha Ayala CNP [Primary Care Provider] -
[2017-08-31] MEDS: Pantoprazole 40 MG VIAL IVP SCH (09:45)
[2017-08-31] MEDS: Valsartan 80 MG TABLET PO SCH (09:46)
[2017-08-31] MEDS: D5% in 0.45% NACL w KCl 20 MEQ/1,000 ML MLS IVC SCH ×2 (09:54→23:45)
[2017-08-31] MEDS ORDERED: *HR* Promethazine 25 MG/ML VIAL IVP PRN (10:46)
[2017-08-31] MEDS ORDERED: Acetaminophen 325 MG TABLET PO PRN ×2 (12:30→12:52)
[2017-08-31] MEDS ORDERED: Ketorolac 15 MG/ML VIAL IVP PRN (12:54)
[2017-08-31] MEDS: *HR* OxyCODONE Immed Rel 5 MG TABLET PO PRN ×2 (12:58→20:34)
[2017-08-31] MEDS: Aspirin 81 MG TAB.CHEW PO SCH (20:22)
[2017-08-31] MEDS: Latanoprost 2.5 ML BOTTLE LEFT EYE SCH (20:23)
[2017-09-01] MEDS: *HR* Heparin 5,000 UNIT/ML VIAL SQ SCH ×2 (05:51→17:49)
[2017-09-01] MEDS: Valsartan 80 MG TABLET PO SCH (08:12)
[2017-09-01] MEDS: Pantoprazole 40 MG VIAL IVP SCH (08:14)
[2017-09-01] MEDS ORDERED: D5% in 0.45% NACL 1,000 ML IVC SCH (10:15)
[2017-09-01] MEDS: *HR* OxyCODONE Immed Rel 5 MG TABLET PO PRN ×2 (10:50→18:52)
--- NOTE | 2017-09-01 10:51 | General Surgery Progress Note ---
Date of Encounter: 09/01/17 Time of Encounter: 10:49 - Assessment and Plan (1) Hiatal hernia Current Visit: Yes Status: Chronic 77F POD #3 s/p open hiatal hernia repair; currently controlled and non septic - cont CLD - pain control: PO pain meds before IV pain meds - activity as tolerated, at least OOBTC for 4hrs at a time - decrease IVF to KVO as she is taking in adequate PO (2) GERD (gastroesophageal reflux disease) Current Visit: Yes Status: Chronic see above PPI Qualifiers: Esophagitis presence: with esophagitis Qualified Code(s): K21.0 - Gastro- esophageal reflux disease with esophagitis (3) DVT prophylaxis Current Visit: Yes Status: Acute cont current regimen: lovenox OOBTC, ambulate (4) Falls frequently Current Visit: Yes Status: Chronic PT/OT; f/u with their assessment ambulate with assistance Subjective Patient reports: no new complaints, feels better, pain is less, tolerating liquids well, flatus, no bowel movement Objective Vital Signs - Last 8 Hours Temp Pulse Resp BP Pulse Ox 09/01/17 10:46 98.2 F 75 14 148/77 96 09/01/17 06:40 97.7 F 74 15 155/82 96 09/01/17 02:56 97.6 F 76 16 118/74 95 Intake and Output 08/31/17 09/01/17 09/01/17 23:59 07:59 15:59 Intake Total 1670 / 1670 360 / 360 Output Total 950 / 950 0 / 0 Balance 1670 / 1670 -950 / -950 360 / 360 Intake: IV Fluids 950 / 950 KCl 20mEq IN D5%-0.45 NACL 20 950 / 950 meq In 1,000 ml @ 75 mls/hr IVC .[id number] VIV Rx#:[id number] Oral 720 / 720 360 / 360 Output: Urine 950 / 950 0 / 0 Other: Meal Clear Clear # Bowel Movements 0 0 Weight 63.503 kg Patient Weight 09/01/17 23:59 Weight 63.503 kg - General physical appearance well developed, well nourished - Respiratory normal expansion, normal respiratory effort, clear to auscultation - Cardiovascular Cardiovascular exam: Present: RRR - Abdomen Abdomen: Present: soft, tender (minimally tender) - Incision Incision: Present: clean and dry, intact - Neurologic CN 2-12 grossly intact - Labs 08/31/17 03:16 08/31/17 03:16 - VTE Documentation of Mechanical Device: Intermittent pneumatic compression device Consult Discharge Plan - Plan Referrals: Otilio Chan MD [Partnered Physician] - 09/11/17 3:15 pm Radha Ayala CNP [Primary Care Provider] -
[2017-09-01] MEDS: Aspirin 81 MG TAB.CHEW PO SCH (21:24)
[2017-09-01] MEDS: Latanoprost 2.5 ML BOTTLE LEFT EYE SCH (21:24)
[2017-09-02] MEDS: *HR* Heparin 5,000 UNIT/ML VIAL SQ SCH ×2 (05:10→18:40)
--- NOTE | 2017-09-02 07:47 | General Surgery Progress Note ---
<Leola Vizcaino - Last Filed: 09/02/17 09:27> Date of Encounter: 09/02/17 Time of Encounter: 06:45 - Assessment and Plan (1) Hiatal hernia Current Visit: Yes Status: Chronic s/p Open Serene (08/29/2017); incision is clean, dry, intact. Faint bowel sounds. Denies n/v, flatus, or BM. Plan for possible d/c tomorrow if patient is doing well. Plan: - Clear liquid diet - D/c IV fluids - ambulating TID with assistance - Dressing removed. (2) DVT prophylaxis Current Visit: Yes Status: Acute IPCD and activity order for ambulation TID with assistance. (3) Falls frequently Current Visit: Yes Status: Chronic Fall precautions. PT/OT for evaluation. (4) GERD (gastroesophageal reflux disease) Current Visit: Yes Status: Chronic Currently not having any symptoms. Qualifiers: Esophagitis presence: with esophagitis Qualified Code(s): K21.0 - Gastro- esophageal reflux disease with esophagitis Subjective Narrative: Patient is a 77-year-old female status post open Se[place] [facility] [place] patient is doing well. Her abdominal pain is better controlled today. She denies any flatus or BM but is still tolerating clears well without N/V. Objective Vital Signs - Last 8 Hours Temp Pulse Resp BP Pulse Ox 09/02/17 07:24 98.3 F 91 16 131/81 93 09/02/17 03:24 98.7 F 95 14 137/79 95 Intake and Output 09/01/17 09/01/17 09/02/17 15:59 23:59 07:59 Intake Total 1643 / 1643 120 / 120 120 / 120 Output Total 0 / 0 0 / 0 0 / 0 Balance 1643 / 1643 120 / 120 120 / 120 Intake: IV Fluids 683 / 683 KCl 20mEq IN D5%-0.45 NACL 20 683 / 683 meq In 1,000 ml @ 75 mls/hr IVC .[id number] VIV Rx#:[id number] Oral 960 / 960 120 / 120 120 / 120 Output: Urine 0 / 0 0 / 0 0 / 0 Other: Meal Clear Dinner Percent of Meal Consumed 50% # Bowel Movements 0 0 Weight 63.231 kg Patient Weight 09/02/17 23:59 Weight 63.231 kg - Additional Exam Constitutional: Alert, in no acute distress, well nourished, well developed. Head: Normocephalic, atraumatic, normal contour and symmetric, no masses, lesions or scars Heart: Normal, regular rate and rhythm, no murmurs Lungs: Clear to auscultation, no wheezes, rales, or rhonchi Abdomen: mild diffuse tenderness, midline superior to the umbilicus incision stabled and well approximated, no drainage, incision healing well without signs of infection, Soft, nondistended, and no masses palpable, bowel sounds hypoactive, no guarding or rigidity. Extremities: No clubbing, cyanosis, or edema, radial pulse +2/4, capillary refill <2sec. Skin: Skin warm and dry, no lesions, no rashes, no jaundice Neurologic: Cranial nerves II through XII grossly intact, no focal deficits, strength within normal limits in all extremities Psych: Cooperative with exam, good eye contact, cognitive function intact, judgment good insight good, speech clear, thought process logical, and goal directed - Labs 09/02/17 08:06 09/02/17 08:06 - VTE Documentation of Mechanical Device: Intermittent pneumatic compression device Consult Discharge Plan - Plan Referrals: Otilio Chan MD [Partnered Physician] - 09/11/17 3:15 pm Radha Ayala CNP [Primary Care Provider] - <Otilio Chan - Last Filed: 09/03/17 07:26> Date of Encounter: 09/02/17 Objective Vital Signs - Last 8 Hours Temp Pulse Resp BP Pulse Ox 09/03/17 06:51 98.3 F 77 12 105/65 94 09/03/17 03:56 98.5 F 84 16 113/68 96 09/02/17 23:36 99.0 F 91 16 112/66 95 Intake and Output 09/02/17 09/02/17 09/03/17 15:59 23:59 07:59 Intake Total 1004 / 1004 604 / 604 1000 / 1000 Output Total 0 / 0 350 / 350 Balance 1004 / 1004 604 / 604 650 / 650 Intake: IV Fluids 104 / 104 104 / 104 1000 / 1000 Magnesium Sulfate 2 GM In 104 / 104 104 / 104 Dextrose 5% 100 ML @ 100 mls/hr IVPB Q1H [facility] Rx#:[id number] Oral 900 / 900 500 / 500 0 / 0 Output: Urine 0 / 0 350 / 350 Other: Meal Clears Clears Percent of Meal Consumed 0% 0% Weight 63.4 kg Patient Weight 09/03/17 23:59 Weight 63.4 kg - Labs 09/02/17 08:06 09/03/17 05:03 Diabetes panel 09/02/17 09/03/17 Range/Units 08:06 05:03 Sodium 133 L 131 L (136-145) mEq/L Potassium 3.7 3.9 (3.5-4.5) mEq/L Chloride 104 102 (98-109) mEq/L Carbon Dioxide 24 24 (19-29) mEq/L BUN 7 10 (7-20) mg/dL Creatinine 0.63 0.69 (0.57-1.11) mg/dL Glucose 119 H 109 H (70-99) mg/dL Calcium 8.4 L 8.5 L (8.6-10.8) mg/dL Calcium panel 09/02/17 09/03/17 Range/Units 08:06 05:03 Calcium 8.4 L 8.5 L (8.6-10.8) mg/dL Phosphorus 2.3 (2.3-4.7) mg/dL Pituitary panel 09/02/17 09/03/17 Range/Units 08:06 05:03 Sodium 133 L 131 L (136-145) mEq/L Potassium 3.7 3.9 (3.5-4.5) mEq/L Chloride 104 102 (98-109) mEq/L Carbon Dioxide 24 24 (19-29) mEq/L BUN 7 10 (7-20) mg/dL Creatinine 0.63 0.69 (0.57-1.11) mg/dL Glucose 119 H 109 H (70-99) mg/dL Calcium 8.4 L 8.5 L (8.6-10.8) mg/dL Adrenal panel 09/02/17 09/03/17 Range/Units 08:06 05:03 Sodium 133 L 131 L (136-145) mEq/L Potassium 3.7 3.9 (3.5-4.5) mEq/L Chloride 104 102 (98-109) mEq/L Carbon Dioxide 24 24 (19-29) mEq/L BUN 7 10 (7-20) mg/dL Creatinine 0.63 0.69 (0.57-1.11) mg/dL Glucose 119 H 109 H (70-99) mg/dL Calcium 8.4 L 8.5 L (8.6-10.8) mg/dL - Attending Attestation I examined this patient and my medical decision-making was reviewed with the Resident Physician. I agree with the documented findings, disposition and treatment plan as described except to the extent set forth below. The patient is seen and evaluated on morning rounds with the resident. She is doing quite well and her diet is progressing as well as her activity and pain control. We will anticipate discharge tomorrow. Otilio Chan MD FACS
[2017-09-02 08:14] LABS: Basophils % 0.5 %; Eosinophils # 0.2 K/mcL (0.0-0.6); Eosinophils % 2.5 %; Hematocrit 29.6 % (35.3-44.9); Hemoglobin 9.8 g/dL (11.5-15.4); Immature Granulocytes % 0.2 % (0-4); Lymphocytes # 1.2 K/mcL (0.6-4.6); Lymphocytes % 13.8 %; Mean Corpuscular HGB Conc 33.1 g/dL (31.6-35.5); Mean Corpuscular Hemoglobin 31.9 pg (28.0-33.3); Mean Corpuscular Volume 96.4 fL (83.0-100.0); Mean Platelet Volume 8.7 fL (9.4-12.4); Monocytes # 1.1 K/mcL (0.0-1.3); Neutrophils # 5.9 K/mcL (1.6-8.9); Platelet Count 168 K/mcL (140-400); Red Blood Count 3.07 M/mcL (3.82-4.97); Red Cell Distribution Width 12.1 % (11.5-14.5)
[2017-09-02 08:25] LABS: BUN/Creatinine Ratio 11 (6-26); Blood Urea Nitrogen 7 mg/dL (7-20); Calcium 8.4 mg/dL (8.6-10.8); Carbon Dioxide 24 mEq/L (19-29); Chloride 104 mEq/L (98-109); Glucose 119 mg/dL (70-99); Magnesium 1.2 mg/dL (1.6-2.6); Osmolality,Calculated 275 (280-300); Phosphorous 2.3 mg/dL (2.3-4.7); Potassium 3.7 mEq/L (3.5-4.5); Sodium 133 mEq/L (136-145); eGFR For African Americans > 60 (> 60); eGFR For Non-African Americans > 60 (> 60)
[2017-09-02] MEDS: Valsartan 80 MG TABLET PO SCH (09:41)
[2017-09-02] MEDS: Pantoprazole 40 MG VIAL IVP SCH (09:41)
[2017-09-02] MEDS ORDERED: Magnesium Sulfate 4 GM in D5% in Water 100 ML IVPB ONE (09:41)
[2017-09-02] MEDS: *HR* OxyCODONE Immed Rel 5 MG TABLET PO PRN ×2 (09:41→20:54)
[2017-09-02] MEDS: Magnesium Sulfate 2 GM in D5% in Water 100 ML IVPB SCH ×2 (11:20→14:10)
[2017-09-02] MEDS: Aspirin 81 MG TAB.CHEW PO SCH (20:54)
[2017-09-02] MEDS: Latanoprost 2.5 ML BOTTLE LEFT EYE SCH (20:56)
[2017-09-03 05:41] LABS: BUN/Creatinine Ratio 14 (6-26); Blood Urea Nitrogen 10 mg/dL (7-20); Calcium 8.5 mg/dL (8.6-10.8); Carbon Dioxide 24 mEq/L (19-29); Chloride 102 mEq/L (98-109); Glucose 109 mg/dL (70-99); Magnesium 2.1 mg/dL (1.6-2.6); Osmolality,Calculated 272 (280-300); Potassium 3.9 mEq/L (3.5-4.5); Sodium 131 mEq/L (136-145); eGFR For African Americans > 60 (> 60); eGFR For Non-African Americans > 60 (> 60)
[2017-09-03] MEDS: *HR* Heparin 5,000 UNIT/ML VIAL SQ SCH (06:01)
[2017-09-03] MEDS: Pantoprazole 40 MG VIAL IVP SCH (08:49)
[2017-09-03] MEDS: Valsartan 80 MG TABLET PO SCH (08:49)
[2017-09-03] MEDS: *HR* OxyCODONE Immed Rel 5 MG TABLET PO PRN (08:50)
--- NOTE | 2017-09-03 11:04 | Discharge Summary ---
<Socorro Wu - Last Filed: 09/03/17 13:59> Date of Encounter: 09/03/17 Time of Encounter: 10:30 - Discharge Diagnosis (1) Hiatal hernia Priority: Primary Status: Resolved (2) Falls frequently Priority: Secondary Status: Chronic (3) GERD (gastroesophageal reflux disease) Priority: Secondary Status: Resolved Qualifiers: Esophagitis presence: with esophagitis Qualified Code(s): K21.0 - Gastro- esophageal reflux disease with esophagitis (4) DVT prophylaxis Priority: Secondary Status: Resolved - Discharge Medications Prescriptions: Ondansetron ODT [Zofran ODT] 4 mg SL Q4HR PRN #30 tab.rapdis PRN Reason: Nausea OxyCODONE Immed Rel [Roxicodone 5 MG] 10 mg PO Q6HR PRN 7 Days #28 tablet PRN Reason: Severe Pain Polyethylene Glycol 3350 [MiraLAX Powder Bulk 17.9 Oz] 1 scoop PO DAILY PRN # 510 gm PRN Reason: Constipation Home Medications: Aspirin 81 mg PO HS 03/01/17 [History] Atorvastatin [Lipitor] 40 mg PO HS 03/01/17 [History] Cholecalciferol (Vitamin D3) [Vitamin D3] 5,000 unit PO DAILY 03/01/17 [History] Ferrous Sulfate [Iron] 325 mg PO DAILY 03/01/17 [History] Furosemide [Lasix] 10 mg PO DAILY PRN 03/01/17 [History] Isosorbide MONOnitrate [Isosorbide Mononitrate] 20 mg PO DAILY 03/01/17 [History ] Potassium 99 mg PO DAILY 03/01/17 [History] Acetaminophen [Tylenol] 1,000 mg PO HS 07/17/17 [History] Esomeprazole Magnesium [Nexium] 40 mg PO DAILY 07/17/17 [History] Latanoprost [Xalatan] 1 drop LEFT EYE HS 07/17/17 [History] Valsartan 40 mg PO DAILY 07/17/17 [History] Albuterol Sulfate [Albuterol Inhaler] 2 puff IH Q4HR PRN #1 hfa.aer.[id number] 07/19/17 [Rx] Nitroglycerin [Nitrostat] 0.4 mg SL Q5M PRN #30 07/19/17 [Rx] Ascorbate Calcium [Vitamin C] 500 mg PO DAILY 08/29/17 [History] Esomeprazole Magnesium [Nexium 24Hr] 22.3 mg PO DAILY 08/29/17 [History] Tiotropium Br/Olodaterol HCl [Stiolto Respimat Inhal G[place]] 2 puff IH DAILY 04/10 [History] l Acidophil/B Lactis/B Longum [Florajen3 Capsule] 460 mg PO DAILY 08/29/17 [ History] Ondansetron ODT [Zofran ODT] 4 mg SL Q4HR PRN #30 tab.rapdis 09/03/17 [Rx] OxyCODONE Immed Rel [Roxicodone 5 MG] 10 mg PO Q6HR PRN 7 Days #28 tablet [Rx] Polyethylene Glycol 3350 [MiraLAX Powder Bulk 17.9 Oz] 1 scoop PO DAILY PRN # 510 gm 09/03/17 [Rx] Allergies/Adverse Reactions: 3 Allergy/AdvReac Type Severity Reaction Status Date / Time acetaminophen Allergy Nausea Verified 08/29/17 11:07 [From Darvocet-N] Amoxicillin [From Augmentin] Allergy Diarrhea Verified 08/29/17 11:07 clavulanic acid Allergy Diarrhea Verified 08/29/17 11:07 [From Augmentin] codeine Allergy Itching Verified 08/29/17 11:07 propoxyphene Allergy Nausea Verified 08/29/17 11:07 [From Darvocet-N] Hydralazine AdvReac Hypotension Verified 08/29/17 11:07 General Surgery Exam Initial Vital Signs Temp Pulse Resp BP Pulse Ox 97.7 F 70 16 144/70 100 08/29/17 11:11 08/29/17 11:11 08/29/17 11:11 08/29/17 11:11 08/29/17 11:11 - General physical appearance well developed, well nourished, no distress - Eyes normal ocular movement - ENT atraumatic, normocephalic - Neck trachea midline, no venous distension - Respiratory normal expansion, normal respiratory effort, clear to percussion, clear to auscultation - Cardiovascular Cardiovascular exam: Present: RRR, 15, 16 - Abdomen Abdomen general surgery: Present: bowel sounds present, soft, tender (Expected postoperative) - Incision Incision: Present: clean and dry, intact - Integumentary Integumentary general surgery: Present: warm and dry, no abnormal pigmentation - Neurologic Present: CN 2-12 grossly intact, normal coordination, normal sensation - Musculoskeletal Present: normal posture - Psychiatric Psychiatric general surgery: Present: A&Ox3, appropriate, oriented to person, oriented to place, oriented to time, speech is normal, memory intact Date of admission: 08/29/17 15:29 Primary care physician: Radha Ayala CNP Consults: 08/30/17 11:58 Consult to Physical Therapy [CONS] Routine Comment: Evaluate, develop and implement POC Reason for Consult: Eval and treat s/p open Serene. Pt states she had difficulty walking prior to surgery. OT [Consult to Occupational Therapy] [CONS] Routine Comment: Evaluate, develop and implement POC Reason for Consult: Eval and treat s/p open Serene. Pt states she had difficulty walking prior to surgery. Discharging clinician: Otilio Wu) Anticipated date of discharge: 09/03/17 - Patient Status Disposition: Home Health Service Condition: Good Functional capacity at discharge: uses cane/walker Overall status at discharge: patient is progressing back to baseline - Discharge Instructions Instructions: Adult Open Serene Fundoplication (DC) Follow Up With: Otilio Chan MD [Partnered Physician] - 09/11/17 3:15 pm Radha Ayala CNP [Primary Care Provider] - 09/09/17 11:30 am Additional Instructions: 1. No lifting, pulling, pushing, greater than 10 pounds for 6 weeks. 2. Take narcotics as directed. You may take ibuprofen or Tylenol for mild pain , and may take the narcotic if needed for severe pain. 3. Take Miralax with at least 8 ounces of thin liquids daily as needed for constipation. He may hold for loose stools. 4. Refer to the Serene diet handout provided in your discharge packet for dietary schedule, progression, and examples of thin, full, and soft diets. 5. Do not defer from the recommended diet as this can affect your healing process and success. 6. Report any fevers greater than 100.5, increase in abdominal pain, or drainage from your incision sites. 7. Follow-up with Dr. Chan as directed. 8. Continue your Nexium at this time as this medication will need to be weaned slowly. - Diet and Activity Activity: ambulate only with your walker, increase activity as tolerated Diet: other (Follow the Serene Diet recommendations only! Do not deviate from this diet plan.) - Hospital Course Hospital course: Ms. Delong is a 77 year old female who presented for an open Repair of paraesophageal hernia and Serene fundoplication, by Dr. Chan on 08/29/2017, after greater than 50% of her stomach was noted to be in the chest. She was started on clear liquids on 08/30/2017. She noted difficulty walking and frequent falls prior to hospitalization and she was therefore referred to PT/OT for eval and treat who recommends home health for PT/Ot at d/c. Her hospital course has been unremarkable. She is ambulating without difficulty (with a walker and assistance), tolerating thin liquids, voiding without difficulty, had a BM on 09/03/2017, a-febrile, and VSS. Her discomfort is controlled on the current regimen. We will begin d/c planning to home, with home PT/OT and a follow-up with Dr. Chan in two weeks. - Time Spent with Patient Total time spent providing and/or coordinating discharge services: Less than 30 minutes Labs on day of discharge: Labs from last 24 hours 09/03/17 05:03 Sodium 131 L Potassium 3.9 Chloride 102 Carbon Dioxide 24 BUN 10 Creatinine 0.69 Est GFR ( Amer) > 60 Est GFR (Non-Af Amer) > 60 BUN/Creatinine Ratio 14 Glucose 109 H Calculated Osmolality 272 L Calcium 8.5 L Magnesium 2.1 <Otilio Chan - Last Filed: 09/04/17 08:44> Date of Encounter: 09/03/17 General Surgery Exam Initial Vital Signs Temp Pulse Resp BP Pulse Ox 97.7 F 70 16 144/70 100 08/29/17 11:11 08/29/17 11:11 08/29/17 11:11 08/29/17 11:11 08/29/17 11:11 Date of admission: 08/29/17 15:29 Primary care physician: Radha Ayala CNP Consults: 08/30/17 11:58 Consult to Physical Therapy [CONS] Routine Comment: Evaluate, develop and implement POC Reason for Consult: Eval and treat s/p open Serene. Pt states she had difficulty walking prior to surgery. OT [Consult to Occupational Therapy] [CONS] Routine Comment: Evaluate, develop and implement POC Reason for Consult: Eval and treat s/p open Serene. Pt states she had difficulty walking prior to surgery. - Hospital Course Hospital course: Ms. Delong is a 77 year old female - Time Spent with Patient Total time spent providing and/or coordinating discharge services: - Attending Attestation I have personally performed a face to face evaluation on this patient. I have reviewed and agree with the care plan. History and Exam by me shows: The patient is seen and evaluated on morning rounds. Her pain control is excellent. She is having no dysphagia. She is ready for discharge later today. I will see her next week in the office. Otilio Chan MD FACS
[2017-09-03 12:19] VITALS: BP 104/66
--- NOTE | 2017-09-03 13:58 | Physician Discharge Referral ---
Home Health/Hosp Referral Info Transfer to: Home Health Attending Provider: Dr. Otilio Chan Provider in Charge Post Discharge: Other (Dr. Otilio Chan) - Diagnosis (1) Hiatal hernia Priority: Primary Status: Resolved (2) Falls frequently Priority: Primary Status: Chronic (3) GERD (gastroesophageal reflux disease) Priority: Secondary Status: Resolved (4) DVT prophylaxis Priority: Secondary Status: Resolved - Respiratory Orders Smoking Cessation: Smoking cessation has been advised. For more information, call the [place] Tobacco Quit Line at 4-926-MAWC-NOW. - Dressing/Wound Care Site: Abdominal surgical site may be washed with soap and water daily and left open to air. - Diet/Nutrition Diet/Nutrition: List: 4. Refer to the [facility] diet handout provided in your discharge packet for dietary schedule, progression, and examples of thin, full, and soft diets. 5. Do not defer from the recommended diet as this can affect your healing process and success. - Activity Activity Orders: Walker Activity: List: 1. No lifting, pulling, pushing, greater than 10 pounds for 6 weeks. 2. Take narcotics as directed. You may take ibuprofen or Tylenol for mild pain , and may take the narcotic if needed for severe pain. 3. Take miralax with at least 8 ounces of thin liquids daily as needed for constipation. He may hold for loose stools. 4. Refer to the [facility] diet handout provided in your discharge packet for dietary schedule, progression, and examples of thin, full, and soft diets. 5. Do not defer from the recommended diet as this can affect your healing process and success. 6. Report any fevers greater than 100.5, increase in abdominal pain, or drainage from your incision sites. 7. Follow-up with Dr. Chan as directed. 8. Continue your Nexium at this time as this medication will need to be weaned slowly. - Services Needed Following services are medically necessary services: Physical Therapy, Occupational Therapy Home Care Orders: 1. No lifting, pulling, pushing, greater than 10 pounds for 6 weeks. 2. Take narcotics as directed. You may take ibuprofen or Tylenol for mild pain , and may take the narcotic if needed for severe pain. 3. Take miralax with at least 8 ounces of thin liquids daily as needed for constipation. He may hold for loose stools. 4. Refer to the [facility] diet handout provided in your discharge packet for dietary schedule, progression, and examples of thin, full, and soft diets. 5. Do not defer from the recommended diet as this can affect your healing process and success. 6. Report any fevers greater than 100.5, increase in abdominal pain, or drainage from your incision sites. 7. Follow-up with Dr. Chan as directed. 8. Continue your Nexium at this time as this medication will need to be weaned slowly. - Transfer Medications Prescriptions: Ondansetron ODT [Zofran ODT] 4 mg SL Q4HR PRN #30 tab.rapdis PRN Reason: Nausea OxyCODONE Immed Rel [Roxicodone 5 MG] 10 mg PO Q6HR PRN 7 Days #28 tablet PRN Reason: Severe Pain Polyethylene Glycol 3350 [MiraLAX Powder Bulk 17.9 Oz] 1 scoop PO DAILY PRN # 510 gm PRN Reason: Constipation Home Medications: Aspirin 81 mg PO HS 03/01/17 [History] Atorvastatin [Lipitor] 40 mg PO HS 03/01/17 [History] Cholecalciferol (Vitamin D3) [Vitamin D3] 5,000 unit PO DAILY 03/01/17 [History] Ferrous Sulfate [Iron] 325 mg PO DAILY 03/01/17 [History] Furosemide [Lasix] 10 mg PO DAILY PRN 03/01/17 [History] Isosorbide MONOnitrate [Isosorbide Mononitrate] 20 mg PO DAILY 03/01/17 [History ] Potassium 99 mg PO DAILY 03/01/17 [History] Acetaminophen [Tylenol] 1,000 mg PO HS 07/17/17 [History] Esomeprazole Magnesium [Nexium] 40 mg PO DAILY 07/17/17 [History] Latanoprost [Xalatan] 1 drop LEFT EYE HS 07/17/17 [History] Valsartan 40 mg PO DAILY 07/17/17 [History] Albuterol Sulfate [Albuterol Inhaler] 2 puff IH Q4HR PRN #1 [id number] 07/19/17 [Rx] Nitroglycerin [Nitrostat] 0.4 mg SL Q5M PRN #30 07/19/17 [Rx] Ascorbate Calcium [Vitamin C] 500 mg PO DAILY 08/29/17 [History] Esomeprazole Magnesium [Nexium 24Hr] 22.3 mg PO DAILY 08/29/17 [History] Tiotropium Br/Olodaterol HCl [Stiolto Respimat Inhal [place]] 2 puff IH DAILY 04/10 [History] l Acidophil/B Lactis/B Longum [Florajen3 Capsule] 460 mg PO DAILY 08/29/17 [ History] Ondansetron ODT [Zofran ODT] 4 mg SL Q4HR PRN #30 tab.rapdis 09/03/17 [Rx] OxyCODONE Immed Rel [Roxicodone 5 MG] 10 mg PO Q6HR PRN 7 Days #28 tablet [Rx] Polyethylene Glycol 3350 [MiraLAX Powder Bulk 17.9 Oz] 1 scoop PO DAILY PRN # 510 gm 09/03/17 [Rx] Allergies/Adverse Reactions: 3 Allergy/AdvReac Type Severity Reaction Status Date / Time acetaminophen Allergy Nausea Verified 08/29/17 11:07 [From Darvocet-N] Amoxicillin [From Augmentin] Allergy Diarrhea Verified 08/29/17 11:07 clavulanic acid Allergy Diarrhea Verified 08/29/17 11:07 [From Augmentin] codeine Allergy Itching Verified 08/29/17 11:07 propoxyphene Allergy Nausea Verified 08/29/17 11:07 [From Darvocet-N] Hydralazine AdvReac Hypotension Verified 08/29/17 11:07 Certification: Further, I certify that my clinical findings support that this patient is homebound (i.e. absences from home require considerable and taxing effort and are for medical reasons or faith services or infrequently or short duration when for other reasons) because: Homebound Reason: Patient requires assistance of a person or device to safely leave home, Post-surgery restriction and or conditions limit ability to leave home Attestation: My signature below is to certify that this patient is under my care and that I, or nurse practitioner, or a physician's assistant press operator working with me, has a face-to -face encounter with this patient.
[2017-09-03] MEDS ORDERED: FLUARIX QUAD 2017-18 36MOS UP/PF 0.5 ML SYRINGE IM ONE (14:00)
== END 2017-09-03 15:17 | disposition home health service (06) | DRG 328 ==
LOC: SAMDAY 10:39 → 3ANU 15:29
PROVIDERS: ADMIT Surgery; ATTEND Surgery

== ENCOUNTER 2019-07-10 21:44 | Observation (INO) ==
[2019-07-11 01:27] LABS: INR 1.1; Prothrombin Time 12.1 Seconds (9.4-12.1)
[2019-07-11 01:42] LABS: Alanine Aminotransferase 14 Units/L (7-52); Albumin 3.9 g/dL (3.5-5.7); Albumin/Globulin Ratio 1.5 (1.1-2.2); Alkaline Phosphatase 74 Units/L (34-104); Aspartate Amino Transferase 27 Units/L (13-39); BUN/Creatinine Ratio 22 (6-26); Blood Urea Nitrogen 12 mg/dL (8-23); Calcium 9.5 mg/dL (8.6-10.3); Carbon Dioxide 27 mEq/L (23-29); Chloride 102 mEq/L (98-107); Chol/HDL Ratio 2.7 (0-4.9); Cholesterol 129 mg/dL (< 200); Globulin 2.6 g/dL (2.4-3.5); Glucose 99 mg/dL (70-105); HDL Cholesterol 47 mg/dL (40-59); LDL Cholesterol,Calculated 61 mg/dL (0-99); Osmolality,Calculated 280 (280-300); Potassium 3.9 mEq/L (3.5-5.1); Sodium 135 mEq/L (136-145); Total Protein 6.5 g/dL (6.4-8.9); Triglycerides 106 mg/dL (< 150); eGFR For African Americans > 60 (> 60); eGFR For Non-African Americans > 60 (> 60)
[2019-07-11] MEDS ORDERED: Aspirin 325 MG TABLET PO ONE (04:00)
[2019-07-11] MEDS: *HR* Heparin 5,000 UNIT/ML VIAL SQ SCH ×3 (05:11→21:19)
[2019-07-11 06:42] LABS: Estimated Average Glucose 123 mg/dl
[2019-07-11] MEDS: Metoprolol XL (24 HR) Succ 25 MG TAB.ER.24H PO SCH (13:27)
[2019-07-11 14:30] LABS: Folate > 22.3 ng/mL (3.0-16.0); Vitamin B12 556 pg/mL (250-1100)
[2019-07-11 15:10] LABS: Basophils % 0.3 %; Eosinophils # 0.1 K/mcL (0.0-0.6); Hematocrit 34.3 % (35.3-44.9); Hemoglobin 11.3 g/dL (11.5-15.4); Immature Granulocytes % 0.2 % (0-4); Lymphocytes # 1.6 K/mcL (0.6-4.6); Lymphocytes % 27.2 %; Mean Corpuscular HGB Conc 32.9 g/dL (31.6-35.5); Mean Corpuscular Hemoglobin 32.8 pg (28.0-33.3); Mean Corpuscular Volume 99.4 fL (83.0-100.0); Mean Platelet Volume 8.9 fL (9.4-12.4); Monocytes # 0.6 K/mcL (0.0-1.3); Monocytes % 10.4 %; Neutrophils # 3.5 K/mcL (1.6-8.9); Platelet Count 209 K/mcL (140-400); Red Blood Count 3.45 M/mcL (3.82-4.97); Red Cell Distribution Width 12.5 % (11.5-14.5); Segmented Neutrophils % 60.9 %; White Blood Count 5.8 K/mcL (4.3-11.1)
[2019-07-11] MEDS ORDERED: Latanoprost 2.5 ML BOTTLE LEFT EYE SCH (21:00)
[2019-07-12 05:20] LABS: Magnesium 1.8 mg/dL (1.6-2.6); Phosphorous 3.7 mg/dL (2.7-4.5)
[2019-07-12] MEDS: *HR* Heparin 5,000 UNIT/ML VIAL SQ SCH (06:37)
[2019-07-12 07:20] LABS: Troponin I < 0.03 ng/mL (< 0.04)
[2019-07-12] MEDS ORDERED: Regadenoson 0.4 MG/5 ML SYRINGE IVP ONE (07:36)
[2019-07-12] MEDS ORDERED: Aspirin 81 MG TAB.CHEW PO SCH (09:00)
[2019-07-12] MEDS ORDERED: Acetaminophen 325 MG TABLET PO PRN (09:53)
[2019-07-12] MEDS: Metoprolol XL (24 HR) Succ 25 MG TAB.ER.24H PO SCH (11:02)
[2019-07-12 11:12] VITALS: BP 143/67
== END 2019-07-12 14:15 | disposition home or self-care (01) ==
LOC: 3BNU → SUATTDRO 21:44
PROVIDERS: ADMIT Internal Medicine; ATTEND Student in an Organized Health Care Education/Training Program

== ENCOUNTER 2021-08-25 14:27 | Observation (INO) ==
[2021-08-25] MEDS ORDERED: GI Cocktail 40 ML EACH PO ONE (14:50)
[2021-08-25] MEDS ORDERED: Famotidine 20 MG/2 ML VIAL IVP ONE (14:50)
[2021-08-25] MEDS ORDERED: Pantoprazole 40 MG VIAL IVP ONE (14:50)
[2021-08-25 15:28] LABS: Basophils % 0.7 %; Eosinophils # 0.1 K/mcL (0.0-0.6); Hematocrit 30.7 % (35.3-44.9); Hemoglobin 10.6 g/dL (11.5-15.4); Immature Granulocytes % 0.2 % (0-4); Lymphocytes # 1.9 K/mcL (0.6-4.6); Lymphocytes % 32.6 %; Mean Corpuscular HGB Conc 34.5 g/dL (31.6-35.5); Mean Corpuscular Hemoglobin 33.5 pg (28.0-33.3); Mean Corpuscular Volume 97.2 fL (83.0-100.0); Mean Platelet Volume 9.7 fL (9.4-12.4); Monocytes # 0.7 K/mcL (0.0-1.3); Monocytes % 12.1 %; Neutrophils # 3.1 K/mcL (1.6-8.9); Platelet Count 228 K/mcL (140-400); Red Blood Count 3.16 M/mcL (3.82-4.97); Red Cell Distribution Width 12.6 % (11.5-14.5); Segmented Neutrophils % 53.4 %; White Blood Count 5.8 K/mcL (4.3-11.1)
[2021-08-25 15:41] LABS: Bilirubin,Urine Negative (Negative); Blood,Urine Negative (Negative); Clarity,Urine Clear (Clear); Color,Urine Light-Yellow (Yellow); Glucose,Urine (UA) Normal (Normal); Ketones,Urine Negative (Negative); Leukocyte Esterase,Urine Negative (Negative); Nitrite,Urine Negative (Negative); Protein,Urine Negative (Neg-Trace); Urobilinogen,Urine Normal (Normal)
[2021-08-25 16:19] LABS: BUN/Creatinine Ratio 25 (6-26); Blood Urea Nitrogen 16 mg/dL (8-23); Carbon Dioxide 24 mEq/L (23-29); Chloride 98 mEq/L (98-107); Glucose 91 mg/dL (70-105); Osmolality,Calculated 277 (280-300); Potassium 3.4 mEq/L (3.5-5.1); Sodium 133 mEq/L (136-145); eGFR For African Americans > 60 (> 60); eGFR For Non-African Americans > 60 (> 60)
[2021-08-25 16:29] LABS: Troponin I 0.04 ng/mL (< 0.04)
[2021-08-25] MEDS ORDERED: Aspirin 325 MG TABLET PO ONE (16:44)
[2021-08-25] MEDS ORDERED: Furosemide 40 MG/4 ML VIAL IVP ONE (17:12)
[2021-08-25] MEDS ORDERED: Naloxone 0.4 MG/ML INJ IVP PRN (17:44)
[2021-08-25] MEDS ORDERED: Nitroglycerin 0.4 MG TAB.SUBL SL PRN (17:47)
[2021-08-25] MEDS ORDERED: Perflutren Lipid Microsphere 1.3 ML in 0.9 % Sodium Chloride 8.7 ML IVP PRN (17:48)
[2021-08-25] MEDS ORDERED: *HR* Heparin 5,000 UNIT/ML VIAL IVP PRN ×2 (17:59)
[2021-08-25] MEDS ORDERED: *HR* Heparin 5,000 UNIT/ML VIAL IVP ONE (17:59)
[2021-08-25] MEDS ORDERED: Heparin 25,000UNIT/250ML 1/2NS 25,000 UNIT/250 ML IV.SOLN IVC SCH (18:00)
[2021-08-25] MEDS ORDERED: *HR* Heparin 5,000 UNIT/ML VIAL SQ SCH (22:00)
[2021-08-25 22:05] LABS: Hematocrit 31.8 % (35.3-44.9); Mean Corpuscular HGB Conc 34.6 g/dL (31.6-35.5); Mean Corpuscular Hemoglobin 33.6 pg (28.0-33.3); Mean Corpuscular Volume 97.2 fL (83.0-100.0); Mean Platelet Volume 9.8 fL (9.4-12.4); Platelet Count 204 K/mcL (140-400); Red Blood Count 3.27 M/mcL (3.82-4.97); Red Cell Distribution Width 12.7 % (11.5-14.5); White Blood Count 5.7 K/mcL (4.3-11.1)
[2021-08-25] MEDS: *HR* Heparin 5,000 UNIT/ML VIAL SQ SCH (22:15)
[2021-08-25 22:16] LABS: INR 1.1
[2021-08-25 22:18] LABS: Heparin anti-factor XA UFH < 0.04 IU/mL (0.30-0.70)
[2021-08-25 22:26] LABS: Magnesium 1.5 mg/dL (1.6-2.6); Phosphorous 2.9 mg/dL (2.7-4.5)
[2021-08-25 22:31] LABS: Troponin I 0.05 ng/mL (< 0.04)
[2021-08-25] MEDS: Mag Hydrox/Al Hydrox/Simeth 30 ML UDC PO PRN (23:44)
[2021-08-26 00:58] LABS: Hematocrit 30.3 % (35.3-44.9); Hemoglobin 10.3 g/dL (11.5-15.4); Mean Corpuscular Volume 97.1 fL (83.0-100.0); Mean Platelet Volume 9.9 fL (9.4-12.4); Platelet Count 206 K/mcL (140-400); Red Blood Count 3.12 M/mcL (3.82-4.97); Red Cell Distribution Width 12.9 % (11.5-14.5); White Blood Count 5.4 K/mcL (4.3-11.1)
[2021-08-26 01:19] LABS: Alanine Aminotransferase 12 Units/L (7-52); Albumin 3.6 g/dL (3.5-5.7); Albumin/Globulin Ratio 1.3 (1.1-2.2); Alkaline Phosphatase 62 Units/L (34-104); Aspartate Amino Transferase 27 Units/L (13-39); BUN/Creatinine Ratio 21 (6-26); Bilirubin,Total 0.6 mg/dL (0.3-1.0); Blood Urea Nitrogen 14 mg/dL (8-23); Calcium 9.4 mg/dL (8.6-10.3); Carbon Dioxide 29 mEq/L (23-29); Chloride 98 mEq/L (98-107); Chol/HDL Ratio 2.3 (0-4.9); Cholesterol 130 mg/dL (< 200); Globulin 2.7 g/dL (2.4-3.5); Glucose 100 mg/dL (70-105); HDL Cholesterol 56 mg/dL (40-59); LDL Cholesterol,Calculated 63 mg/dL (< 100); Magnesium 1.6 mg/dL (1.6-2.6); Osmolality,Calculated 281 (280-300); Phosphorous 2.9 mg/dL (2.7-4.5); Potassium 3.8 mEq/L (3.5-5.1); Sodium 135 mEq/L (136-145); Total Protein 6.3 g/dL (6.4-8.9); Triglycerides 53 mg/dL (< 150); eGFR For African Americans > 60 (> 60); eGFR For Non-African Americans > 60 (> 60)
[2021-08-26] MEDS: *HR* Heparin 5,000 UNIT/ML VIAL SQ SCH ×3 (05:31→20:37)
[2021-08-26] MEDS: Mag Hydrox/Al Hydrox/Simeth 30 ML UDC PO PRN (07:47)
[2021-08-26] MEDS: Sucralfate 1 GM TABLET PO SCH ×2 (07:48→20:44)
[2021-08-26] MEDS: Aspirin Enteric Coated 81 MG Tablet PO SCH (07:54)
[2021-08-26] MEDS: Loratadine 10 MG TABLET PO SCH (07:54)
[2021-08-26] MEDS ORDERED: Furosemide 40 MG/4 ML VIAL IVP SCH (09:00)
[2021-08-26] MEDS ORDERED: Pantoprazole 40 MG VIAL IVP SCH (09:00)
[2021-08-26] MEDS ORDERED: GI Cocktail 40 ML EACH PO ONE (09:04)
[2021-08-26] MEDS: tiZANidine 4 MG TABLET PO SCH (20:44)
[2021-08-26] MEDS: Latanoprost 2.5 ML BOTTLE LEFT EYE SCH (20:47)
[2021-08-27 03:13] LABS: Basophils % 0.8 %; Eosinophils # 0.1 K/mcL (0.0-0.6); Eosinophils % 1.5 %; Hematocrit 26.9 % (35.3-44.9); Hemoglobin 9.3 g/dL (11.5-15.4); Immature Granulocytes % 0.2 % (0-4); Lymphocytes # 2.1 K/mcL (0.6-4.6); Lymphocytes % 40.2 %; Mean Corpuscular HGB Conc 34.6 g/dL (31.6-35.5); Mean Corpuscular Hemoglobin 33.8 pg (28.0-33.3); Mean Corpuscular Volume 97.8 fL (83.0-100.0); Mean Platelet Volume 9.7 fL (9.4-12.4); Monocytes # 0.6 K/mcL (0.0-1.3); Monocytes % 10.7 %; Neutrophils # 2.5 K/mcL (1.6-8.9); Platelet Count 182 K/mcL (140-400); Red Blood Count 2.75 M/mcL (3.82-4.97); Red Cell Distribution Width 12.7 % (11.5-14.5); Segmented Neutrophils % 46.6 %; White Blood Count 5.3 K/mcL (4.3-11.1)
[2021-08-27 03:54] LABS: BUN/Creatinine Ratio 28 (6-26); Blood Urea Nitrogen 17 mg/dL (8-23); Calcium 8.6 mg/dL (8.6-10.3); Carbon Dioxide 26 mEq/L (23-29); Chloride 100 mEq/L (98-107); Glucose 90 mg/dL (70-105); Magnesium 1.7 mg/dL (1.6-2.6); Osmolality,Calculated 275 (280-300); Phosphorous 3.1 mg/dL (2.7-4.5); Sodium 132 mEq/L (136-145); eGFR For African Americans > 60 (> 60); eGFR For Non-African Americans > 60 (> 60)
[2021-08-27] MEDS: *HR* Heparin 5,000 UNIT/ML VIAL SQ SCH ×3 (06:10→19:23)
[2021-08-27] MEDS: Ondansetron 4 MG/2 ML VIAL IVP PRN ×2 (09:42→21:31)
[2021-08-27] MEDS ORDERED: E-Z-PAQUE (BARIUM SULF) SUSP 1 BOTTLE PO ONE (11:11)
[2021-08-27] MEDS ORDERED: E-Z-HD (BARIUM SULF) SUSPENSION PO ONE (11:11)
[2021-08-27] MEDS ORDERED: Simethicone/Sodium Bic/Citr Ac 1 EACH GRAN.EF.PK PO ONE (11:11)
[2021-08-27] MEDS: Sucralfate 1 GM TABLET PO SCH ×2 (13:07→19:24)
[2021-08-27] MEDS: Loratadine 10 MG TABLET PO SCH (13:07)
[2021-08-27] MEDS: Aspirin Enteric Coated 81 MG Tablet PO SCH (13:07)
[2021-08-27] MEDS: Mag Hydrox/Al Hydrox/Simeth 30 ML UDC PO PRN (19:23)
[2021-08-27] MEDS: Latanoprost 2.5 ML BOTTLE LEFT EYE SCH (19:24)
[2021-08-27] MEDS: tiZANidine 4 MG TABLET PO SCH (19:24)
[2021-08-27] MEDS: polyethylene glycoL 3350 17 GM POWD.PACK PO SCH (22:23)
[2021-08-28] MEDS: *HR* Heparin 5,000 UNIT/ML VIAL SQ SCH ×3 (02:40→22:03)
[2021-08-28 05:51] LABS: Hematocrit 28.2 % (35.3-44.9); Hemoglobin 9.3 g/dL (11.5-15.4); Mean Corpuscular Hemoglobin 32.3 pg (28.0-33.3); Mean Corpuscular Volume 97.9 fL (83.0-100.0); Mean Platelet Volume 9.8 fL (9.4-12.4); Platelet Count 192 K/mcL (140-400); Red Blood Count 2.88 M/mcL (3.82-4.97); Red Cell Distribution Width 12.5 % (11.5-14.5)
[2021-08-28 06:10] LABS: BUN/Creatinine Ratio 26 (6-26); Blood Urea Nitrogen 17 mg/dL (8-23); Calcium 8.6 mg/dL (8.6-10.3); Carbon Dioxide 26 mEq/L (23-29); Chloride 100 mEq/L (98-107); Glucose 87 mg/dL (70-105); Magnesium 1.7 mg/dL (1.6-2.6); Osmolality,Calculated 277 (280-300); Phosphorous 3.3 mg/dL (2.7-4.5); Sodium 133 mEq/L (136-145); eGFR For African Americans > 60 (> 60); eGFR For Non-African Americans > 60 (> 60)
[2021-08-28] MEDS ORDERED: polyethylene glycoL 3350 17 GM POWD.PACK PO SCH (09:00)
[2021-08-28] MEDS: Aspirin Enteric Coated 81 MG Tablet PO SCH (09:45)
[2021-08-28] MEDS: Loratadine 10 MG TABLET PO SCH (09:45)
[2021-08-28] MEDS: Sucralfate 1 GM TABLET PO SCH ×2 (09:45→22:02)
[2021-08-28] MEDS ORDERED: *HR* Propofol 200 MG/20 ML VIAL IVP ONE (12:30)
[2021-08-28] MEDS: Mag Hydrox/Al Hydrox/Simeth 30 ML UDC PO PRN (18:07)
[2021-08-28] MEDS: tiZANidine 4 MG TABLET PO SCH (22:02)
[2021-08-28] MEDS: polyethylene glycoL 3350 17 GM POWD.PACK PO SCH ×2 (22:03→22:29)
[2021-08-28] MEDS: Latanoprost 2.5 ML BOTTLE LEFT EYE SCH (22:03)
[2021-08-29] MEDS: *HR* Heparin 5,000 UNIT/ML VIAL SQ SCH ×3 (05:37→20:26)
[2021-08-29 06:49] LABS: Basophils % 0.3 %; Eosinophils # 0.1 K/mcL (0.0-0.6); Eosinophils % 0.6 %; Hematocrit 27.4 % (35.3-44.9); Hemoglobin 9.2 g/dL (11.5-15.4); Immature Granulocytes % 0.3 % (0-4); Lymphocytes # 1.9 K/mcL (0.6-4.6); Lymphocytes % 20.1 %; Mean Corpuscular HGB Conc 33.6 g/dL (31.6-35.5); Mean Corpuscular Hemoglobin 33.5 pg (28.0-33.3); Mean Corpuscular Volume 99.6 fL (83.0-100.0); Mean Platelet Volume 10.1 fL (9.4-12.4); Monocytes # 0.9 K/mcL (0.0-1.3); Monocytes % 9.7 %; Neutrophils # 6.6 K/mcL (1.6-8.9); Platelet Count 185 K/mcL (140-400); Red Blood Count 2.75 M/mcL (3.82-4.97); Red Cell Distribution Width 12.8 % (11.5-14.5); White Blood Count 9.5 K/mcL (4.3-11.1)
[2021-08-29 07:03] LABS: BUN/Creatinine Ratio 20 (6-26); Blood Urea Nitrogen 11 mg/dL (8-23); Calcium 8.3 mg/dL (8.6-10.3); Carbon Dioxide 26 mEq/L (23-29); Chloride 102 mEq/L (98-107); Glucose 87 mg/dL (70-105); Osmolality,Calculated 273 (280-300); Sodium 132 mEq/L (136-145); eGFR For African Americans > 60 (> 60); eGFR For Non-African Americans > 60 (> 60)
[2021-08-29] MEDS: Aspirin Enteric Coated 81 MG Tablet PO SCH (08:12)
[2021-08-29] MEDS: Loratadine 10 MG TABLET PO SCH (08:13)
[2021-08-29] MEDS: Sucralfate 1 GM TABLET PO SCH ×2 (08:13→20:24)
[2021-08-29] MEDS: Chloraseptic Spray 177 ML BOTTLE MM PRN ×2 (11:01→20:39)
[2021-08-29] MEDS: tiZANidine 4 MG TABLET PO SCH (20:23)
[2021-08-29] MEDS: polyethylene glycoL 3350 17 GM POWD.PACK PO SCH (20:26)
[2021-08-29] MEDS: Latanoprost 2.5 ML BOTTLE LEFT EYE SCH (20:26)
[2021-08-30] MEDS: *HR* Heparin 5,000 UNIT/ML VIAL SQ SCH ×3 (05:16→22:21)
[2021-08-30] MEDS: Chloraseptic Spray 177 ML BOTTLE MM PRN (05:19)
[2021-08-30] MEDS: Aspirin Enteric Coated 81 MG Tablet PO SCH (07:24)
[2021-08-30] MEDS: Sucralfate 1 GM TABLET PO SCH ×2 (07:24→22:12)
[2021-08-30] MEDS: Loratadine 10 MG TABLET PO SCH (07:25)
[2021-08-30] MEDS ORDERED: GI Cocktail 40 ML EACH PO ONE (12:44)
[2021-08-30] MEDS: Famotidine 20 MG/2 ML VIAL IVP SCH (20:26)
[2021-08-30] MEDS: tiZANidine 4 MG TABLET PO SCH (22:11)
[2021-08-30] MEDS: polyethylene glycoL 3350 17 GM POWD.PACK PO SCH (22:12)
[2021-08-30] MEDS: Latanoprost 2.5 ML BOTTLE LEFT EYE SCH (22:17)
[2021-08-31] MEDS: *HR* Heparin 5,000 UNIT/ML VIAL SQ SCH ×3 (05:14→20:12)
[2021-08-31] MEDS: Famotidine 20 MG/2 ML VIAL IVP SCH ×2 (05:14→17:57)
[2021-08-31] MEDS: Chloraseptic Spray 177 ML BOTTLE MM PRN (05:25)
[2021-08-31] MEDS: Sucralfate 1 GM TABLET PO SCH ×2 (07:45→20:11)
[2021-08-31] MEDS: Aspirin Enteric Coated 81 MG Tablet PO SCH (07:45)
[2021-08-31] MEDS: Loratadine 10 MG TABLET PO SCH (07:45)
[2021-08-31 10:09] LABS: Albumin 3.1 g/dL (3.5-5.7); Albumin/Globulin Ratio 1.4 (1.1-2.2); Bilirubin,Direct 0.1 mg/dL (0.0-0.2); Bilirubin,Indirect 0.3 mg/dL (0.0-1.0); Bilirubin,Total 0.4 mg/dL (0.3-1.0); Globulin 2.2 g/dL (2.4-3.5); Total Protein 5.3 g/dL (6.4-8.9)
[2021-08-31 12:09] LABS: Basophils # 0.1 K/mcL (0.0-0.2); Basophils % 1.2 %; Eosinophils # 0.1 K/mcL (0.0-0.6); Eosinophils % 1.5 %; Hematocrit 28.8 % (35.3-44.9); Hemoglobin 9.4 g/dL (11.5-15.4); Immature Granulocytes % 0.2 % (0-4); Lymphocytes # 1.4 K/mcL (0.6-4.6); Lymphocytes % 35.4 %; Mean Corpuscular HGB Conc 32.6 g/dL (31.6-35.5); Mean Corpuscular Hemoglobin 32.6 pg (28.0-33.3); Mean Platelet Volume 10.1 fL (9.4-12.4); Monocytes % 11.1 %; Platelet Count 209 K/mcL (140-400); Red Blood Count 2.88 M/mcL (3.82-4.97); Red Cell Distribution Width 12.8 % (11.5-14.5); Segmented Neutrophils % 50.6 %
[2021-08-31 12:10] LABS: Monocytes # 0.4 K/mcL (0.0-1.3)
[2021-08-31] MEDS: polyethylene glycoL 3350 17 GM POWD.PACK PO SCH ×2 (13:38→20:10)
[2021-08-31] MEDS ORDERED: Milk and Molasses Enema 200 ML RC ONE (16:36)
[2021-08-31] MEDS: Latanoprost 2.5 ML BOTTLE LEFT EYE SCH (20:10)
[2021-08-31] MEDS: tiZANidine 4 MG TABLET PO SCH (20:10)
[2021-09-01] MEDS: Famotidine 20 MG/2 ML VIAL IVP SCH (05:21)
[2021-09-01] MEDS: Chloraseptic Spray 177 ML BOTTLE MM PRN (05:22)
[2021-09-01] MEDS: *HR* Heparin 5,000 UNIT/ML VIAL SQ SCH (05:22)
[2021-09-01 08:22] LABS: BUN/Creatinine Ratio 23 (6-26); Blood Urea Nitrogen 11 mg/dL (8-23); Calcium 8.6 mg/dL (8.6-10.3); Carbon Dioxide 25 mEq/L (23-29); Chloride 106 mEq/L (98-107); Glucose 93 mg/dL (70-105); Osmolality,Calculated 281 (280-300); Potassium 3.8 mEq/L (3.5-5.1); Sodium 136 mEq/L (136-145); eGFR For African Americans > 60 (> 60); eGFR For Non-African Americans > 60 (> 60)
[2021-09-01 08:30] LABS: Basophils % 0.2 %; Eosinophils % 0.1 %; Hematocrit 26.6 % (35.3-44.9); Hemoglobin 8.8 g/dL (11.5-15.4); Immature Granulocytes % 0.3 % (0-4); Lymphocytes # 1.4 K/mcL (0.6-4.6); Lymphocytes % 15.7 %; Mean Corpuscular HGB Conc 33.1 g/dL (31.6-35.5); Mean Corpuscular Hemoglobin 33.1 pg (28.0-33.3); Mean Platelet Volume 10.5 fL (9.4-12.4); Monocytes # 0.5 K/mcL (0.0-1.3); Monocytes % 5.7 %; Neutrophils # 6.9 K/mcL (1.6-8.9); Platelet Count 207 K/mcL (140-400); Red Blood Count 2.66 M/mcL (3.82-4.97); Red Cell Distribution Width 12.6 % (11.5-14.5); White Blood Count 8.8 K/mcL (4.3-11.1)
[2021-09-01] MEDS: Sucralfate 1 GM TABLET PO SCH (10:04)
[2021-09-01] MEDS: polyethylene glycoL 3350 17 GM POWD.PACK PO SCH (11:19)
[2021-09-01] MEDS: Loratadine 10 MG TABLET PO SCH (11:19)
[2021-09-01] MEDS: Aspirin Enteric Coated 81 MG Tablet PO SCH (11:19)
[2021-09-01 12:25] VITALS: BP 165/85; PULSE 65; TEMP 98.4; O2SAT 99
[2021-09-01 12:35] LABS: Influenza A PCR Negative (Negative); Influenza B PCR Negative (Negative); Resp. Syncytial Virus PCR Negative (Negative)
[2021-09-01 13:08] LABS: SARS-CoV-2 by PCR (In House) Negative (Negative)
== END 2021-09-01 14:30 | disposition other institution (70) ==
LOC: EMEROOARM 14:27 → 3BNU 14:27
PROVIDERS: ADMIT Pharmacist; ATTEND Pharmacist
PROC: ENDOEDS (2021-08-28 13:45)

== ENCOUNTER 2022-05-24 17:01 | Observation (INO) ==
[2022-05-24 17:49] LABS: Basophils % 0.1 %; Eosinophils % 0.1 %; Hematocrit 31.6 % (35.3-44.9); Hemoglobin 10.7 g/dL (11.5-15.4); Immature Granulocytes % 0.4 % (0-4); Lymphocytes # 0.9 K/mcL (0.6-4.6); Lymphocytes % 6.3 %; Mean Corpuscular HGB Conc 33.9 g/dL (31.6-35.5); Mean Corpuscular Hemoglobin 33.4 pg (28.0-33.3); Mean Corpuscular Volume 98.8 fL (83.0-100.0); Mean Platelet Volume 9.1 fL (9.4-12.4); Monocytes # 0.9 K/mcL (0.0-1.3); Monocytes % 6.4 %; Neutrophils # 12.7 K/mcL (1.6-8.9); Platelet Count 211 K/mcL (140-400); Red Cell Distribution Width 12.5 % (11.5-14.5); Segmented Neutrophils % 86.7 %; White Blood Count 14.6 K/mcL (4.3-11.1)
[2022-05-24] MEDS ORDERED: 0.9 % Sodium Chloride 1,000 ML IV ONE (17:54)
[2022-05-24] MEDS ORDERED: *HR* FentaNYL (PF) 100 MCG/2 ML VIAL IVP ONE (17:54)
[2022-05-24 18:15] LABS: Alanine Aminotransferase 13 Units/L (7-52); Albumin 3.9 g/dL (3.5-5.7); Albumin/Globulin Ratio 1.3 (1.1-2.2); Alkaline Phosphatase 79 Units/L (34-104); Aspartate Amino Transferase 26 Units/L (13-39); BUN/Creatinine Ratio 22 (6-26); Bilirubin,Direct 0.2 mg/dL (0.0-0.2); Bilirubin,Indirect 0.6 mg/dL (0.0-1.0); Bilirubin,Total 0.8 mg/dL (0.3-1.0); Blood Urea Nitrogen 16 mg/dL (8-23); Calcium 9.4 mg/dL (8.6-10.3); Carbon Dioxide 24 mEq/L (23-29); Chloride 100 mEq/L (98-107); Chol/HDL Ratio 1.9 (0-4.9); Cholesterol 127 mg/dL (< 200); Globulin 3.1 g/dL (2.4-3.5); Glucose 97 mg/dL (70-105); HDL Cholesterol 66 mg/dL (40-59); LDL Cholesterol,Calculated 51 mg/dL (< 100); Osmolality,Calculated 277 (280-300); Sodium 133 mEq/L (136-145); Triglycerides 52 mg/dL (< 150); Troponin I < 0.03 ng/mL (< 0.04); eGFR For African Americans > 60 (> 60); eGFR For Non-African Americans > 60 (> 60)
[2022-05-24 21:47] LABS: Bilirubin,Urine Negative (Negative); Blood,Urine Negative (Negative); Clarity,Urine Clear (Clear); Color,Urine Colorless (Yellow); Glucose,Urine (UA) Normal (Normal); Ketones,Urine Negative (Negative); Leukocyte Esterase,Urine Negative (Negative); Nitrite,Urine Negative (Negative); Protein,Urine Negative (Neg-Trace); Urobilinogen,Urine Normal (Normal)
[2022-05-24] MEDS ORDERED: Famotidine 20 MG/2 ML VIAL IVP ONE (22:18)
[2022-05-24] MEDS ORDERED: Pantoprazole 40 MG VIAL IVP ONE (22:18)
[2022-05-24] MEDS ORDERED: Piperacillin/Tazobactam 3.375 GM in 0.9 % Sodium Chloride Mini Bag 100 ML IVPB ONE (22:40)
[2022-05-24] MEDS ORDERED: Ondansetron 4 MG/2 ML VIAL IVP PRN (23:36)
[2022-05-24] MEDS ORDERED: Naloxone 0.4 MG/ML INJ IVP PRN (23:36)
[2022-05-24] MEDS ORDERED: Melatonin 3 MG TABLET PO PRN (23:36)
[2022-05-25] MEDS ORDERED: Sennosides/Docusate Sodium TABLET PO PRN (00:02)
[2022-05-25] MEDS ORDERED: 0.9 % Sodium Chloride 1,000 ML IVC SCH (02:00)
[2022-05-25 03:54] LABS: Basophils % 0.3 %; Eosinophils % 0.1 %; Hematocrit 28.3 % (35.3-44.9); Hemoglobin 9.3 g/dL (11.5-15.4); Immature Granulocytes % 0.3 % (0-4); Lymphocytes # 1.7 K/mcL (0.6-4.6); Lymphocytes % 14.5 %; Mean Corpuscular HGB Conc 32.9 g/dL (31.6-35.5); Mean Corpuscular Hemoglobin 33.1 pg (28.0-33.3); Mean Corpuscular Volume 100.7 fL (83.0-100.0); Mean Platelet Volume 9.4 fL (9.4-12.4); Monocytes # 1.2 K/mcL (0.0-1.3); Monocytes % 9.9 %; Neutrophils # 8.8 K/mcL (1.6-8.9); Platelet Count 178 K/mcL (140-400); Red Blood Count 2.81 M/mcL (3.82-4.97); Red Cell Distribution Width 12.5 % (11.5-14.5); Segmented Neutrophils % 74.9 %; White Blood Count 11.7 K/mcL (4.3-11.1)
[2022-05-25 04:08] LABS: BUN/Creatinine Ratio 18 (6-26); Blood Urea Nitrogen 13 mg/dL (8-23); Calcium 8.3 mg/dL (8.6-10.3); Carbon Dioxide 24 mEq/L (23-29); Chloride 104 mEq/L (98-107); Glucose 110 mg/dL (70-105); Magnesium 1.6 mg/dL (1.6-2.6); Osmolality,Calculated 279 (280-300); Phosphorous 3.2 mg/dL (2.7-4.5); Potassium 3.5 mEq/L (3.5-5.1); Sodium 134 mEq/L (136-145); eGFR For African Americans > 60 (> 60); eGFR For Non-African Americans > 60 (> 60)
[2022-05-25] MEDS: Piperacillin/Tazobactam 3.375 GM in 0.9 % Sodium Chloride Mini Bag 100 ML IVPB SCH ×3 (06:09→23:00)
[2022-05-25] MEDS ORDERED: Pantoprazole 40 MG VIAL IVP SCH (09:00)
[2022-05-25] MEDS: Pantoprazole 40 MG VIAL IVP SCH ×2 (09:35→19:46)
[2022-05-25] MEDS: Lactobacillus 1 EACH CAP.SPRINK PO SCH ×2 (09:36→19:46)
[2022-05-25] MEDS: polyethylene glycoL 3350 17 GM POWD.PACK PO SCH (15:34)
[2022-05-25] MEDS: calcium polycarbophiL 625 MG TABLET PO SCH (17:49)
[2022-05-26 02:25] LABS: Basophils % 0.5 %; Eosinophils # 0.1 K/mcL (0.0-0.6); Eosinophils % 0.8 %; Hematocrit 25.4 % (35.3-44.9); Hemoglobin 8.3 g/dL (11.5-15.4); Immature Granulocytes % 0.2 % (0-4); Lymphocytes # 1.8 K/mcL (0.6-4.6); Lymphocytes % 26.7 %; Mean Corpuscular HGB Conc 32.7 g/dL (31.6-35.5); Mean Corpuscular Hemoglobin 32.5 pg (28.0-33.3); Mean Corpuscular Volume 99.6 fL (83.0-100.0); Mean Platelet Volume 9.2 fL (9.4-12.4); Monocytes # 0.8 K/mcL (0.0-1.3); Monocytes % 11.8 %; Platelet Count 153 K/mcL (140-400); Red Blood Count 2.55 M/mcL (3.82-4.97); Red Cell Distribution Width 12.8 % (11.5-14.5); White Blood Count 6.6 K/mcL (4.3-11.1)
[2022-05-26 02:50] LABS: BUN/Creatinine Ratio 14 (6-26); Blood Urea Nitrogen 8 mg/dL (8-23); Calcium 8.4 mg/dL (8.6-10.3); Carbon Dioxide 23 mEq/L (23-29); Chloride 105 mEq/L (98-107); Glucose 92 mg/dL (70-105); Osmolality,Calculated 274 (280-300); Potassium 3.8 mEq/L (3.5-5.1); Sodium 133 mEq/L (136-145); eGFR For African Americans > 60 (> 60); eGFR For Non-African Americans > 60 (> 60)
[2022-05-26] MEDS: Piperacillin/Tazobactam 3.375 GM in 0.9 % Sodium Chloride Mini Bag 100 ML IVPB SCH ×2 (06:06→15:27)
[2022-05-26] MEDS: Lactobacillus 1 EACH CAP.SPRINK PO SCH ×2 (10:48→20:17)
[2022-05-26] MEDS: calcium polycarbophiL 625 MG TABLET PO SCH (10:48)
[2022-05-26] MEDS: polyethylene glycoL 3350 17 GM POWD.PACK PO SCH (10:48)
[2022-05-26] MEDS: Pantoprazole 40 MG VIAL IVP SCH ×2 (10:49→20:17)
[2022-05-26 14:33] LABS: % Iron Saturation 12 % (15-50); Iron 34 mcg/dL (50-170); Transferrin 201 mg/dL (203-362)
[2022-05-26 15:00] LABS: Folate 11.8 ng/mL (3.0-16.0)
[2022-05-27] MEDS: Piperacillin/Tazobactam 3.375 GM in 0.9 % Sodium Chloride Mini Bag 100 ML IVPB SCH ×4 (01:27→22:58)
[2022-05-27] MEDS ORDERED: Acetaminophen 325 MG TABLET PO ONE (04:32)
[2022-05-27] MEDS ORDERED: *HR* LORazepam 2 MG/ML VIAL IVP ONE (05:14)
[2022-05-27] MEDS ORDERED: Simethicone 80 MG TAB.CHEW PO PRN (05:14)
[2022-05-27 06:04] LABS: Basophils % 0.3 %; Eosinophils # 0.1 K/mcL (0.0-0.6); Eosinophils % 1.7 %; Immature Granulocytes % 0.2 % (0-4); Lymphocytes # 2.3 K/mcL (0.6-4.6); Lymphocytes % 38.6 %; Mean Corpuscular HGB Conc 33.2 g/dL (31.6-35.5); Mean Corpuscular Hemoglobin 32.9 pg (28.0-33.3); Mean Platelet Volume 9.4 fL (9.4-12.4); Monocytes # 0.8 K/mcL (0.0-1.3); Monocytes % 12.6 %; Neutrophils # 2.8 K/mcL (1.6-8.9); Platelet Count 195 K/mcL (140-400); Red Blood Count 3.13 M/mcL (3.82-4.97); Red Cell Distribution Width 12.4 % (11.5-14.5); Segmented Neutrophils % 46.6 %
[2022-05-27 06:09] LABS: Hemoglobin 10.3 g/dL (11.5-15.4)
[2022-05-27 06:29] LABS: BUN/Creatinine Ratio 12 (6-26); Blood Urea Nitrogen 9 mg/dL (8-23); Calcium 9.2 mg/dL (8.6-10.3); Carbon Dioxide 23 mEq/L (23-29); Chloride 101 mEq/L (98-107); Glucose 80 mg/dL (70-105); Osmolality,Calculated 276 (280-300); Potassium 3.9 mEq/L (3.5-5.1); Sodium 134 mEq/L (136-145); eGFR For African Americans > 60 (> 60); eGFR For Non-African Americans > 60 (> 60)
[2022-05-27] MEDS: polyethylene glycoL 3350 17 GM POWD.PACK PO SCH (10:16)
[2022-05-27] MEDS: Lactobacillus 1 EACH CAP.SPRINK PO SCH ×2 (10:16→20:24)
[2022-05-27] MEDS: Pantoprazole 40 MG VIAL IVP SCH ×2 (10:16→20:46)
[2022-05-27] MEDS: calcium polycarbophiL 625 MG TABLET PO SCH (10:16)
[2022-05-27] MEDS ORDERED: GI Cocktail 40 ML EACH PO PRN (14:33)
[2022-05-28 01:48] LABS: Basophils % 0.8 %; Eosinophils # 0.1 K/mcL (0.0-0.6); Eosinophils % 1.9 %; Hematocrit 27.4 % (35.3-44.9); Hemoglobin 8.9 g/dL (11.5-15.4); Immature Granulocytes % 0.2 % (0-4); Lymphocytes # 2.1 K/mcL (0.6-4.6); Lymphocytes % 40.4 %; Mean Corpuscular HGB Conc 32.5 g/dL (31.6-35.5); Mean Corpuscular Hemoglobin 32.5 pg (28.0-33.3); Mean Platelet Volume 9.3 fL (9.4-12.4); Monocytes # 0.5 K/mcL (0.0-1.3); Monocytes % 10.3 %; Neutrophils # 2.4 K/mcL (1.6-8.9); Platelet Count 183 K/mcL (140-400); Red Blood Count 2.74 M/mcL (3.82-4.97); Red Cell Distribution Width 12.3 % (11.5-14.5); Segmented Neutrophils % 46.4 %; White Blood Count 5.3 K/mcL (4.3-11.1)
[2022-05-28 02:00] LABS: Alanine Aminotransferase 12 Units/L (7-52); Albumin 3.2 g/dL (3.5-5.7); Albumin/Globulin Ratio 1.3 (1.1-2.2); Alkaline Phosphatase 56 Units/L (34-104); Aspartate Amino Transferase 23 Units/L (13-39); BUN/Creatinine Ratio 12 (6-26); BUN/Creatinine Ratio 14 (6-26); Bilirubin,Total 0.5 mg/dL (0.3-1.0); Blood Urea Nitrogen 10 mg/dL (8-23); Blood Urea Nitrogen 9 mg/dL (8-23); Calcium 8.4 mg/dL (8.6-10.3); Calcium 8.6 mg/dL (8.6-10.3); Carbon Dioxide 22 mEq/L (23-29); Chloride 101 mEq/L (98-107); Chloride 102 mEq/L (98-107); Globulin 2.5 g/dL (2.4-3.5); Glucose 85 mg/dL (70-105); Osmolality,Calculated 268 (280-300); Potassium 4.1 mEq/L (3.5-5.1); Sodium 130 mEq/L (136-145); Total Protein 5.7 g/dL (6.4-8.9); eGFR For African Americans > 60 (> 60); eGFR For Non-African Americans > 60 (> 60)
[2022-05-28] MEDS: Piperacillin/Tazobactam 3.375 GM in 0.9 % Sodium Chloride Mini Bag 100 ML IVPB SCH ×2 (05:13→15:25)
[2022-05-28] MEDS: polyethylene glycoL 3350 17 GM POWD.PACK PO SCH (09:08)
[2022-05-28] MEDS: Lactobacillus 1 EACH CAP.SPRINK PO SCH ×2 (09:08→22:38)
[2022-05-28] MEDS: Pantoprazole 40 MG VIAL IVP SCH ×2 (09:08→22:38)
[2022-05-28] MEDS: calcium polycarbophiL 625 MG TABLET PO SCH (09:08)
[2022-05-29] MEDS: Piperacillin/Tazobactam 3.375 GM in 0.9 % Sodium Chloride Mini Bag 100 ML IVPB SCH ×4 (00:47→22:37)
[2022-05-29] MEDS: calcium polycarbophiL 625 MG TABLET PO SCH (11:11)
[2022-05-29] MEDS: polyethylene glycoL 3350 17 GM POWD.PACK PO SCH (11:11)
[2022-05-29] MEDS: Lactobacillus 1 EACH CAP.SPRINK PO SCH ×2 (11:11→19:57)
[2022-05-29] MEDS: Pantoprazole 40 MG VIAL IVP SCH ×2 (11:41→19:56)
[2022-05-29] MEDS ORDERED: Latanoprost 2.5 ML BOTTLE LEFT EYE SCH (21:00)
[2022-05-30 05:01] LABS: Basophils % 0.6 %; Eosinophils # 0.1 K/mcL (0.0-0.6); Eosinophils % 2.2 %; Hematocrit 27.7 % (35.3-44.9); Hemoglobin 9.3 g/dL (11.5-15.4); Immature Granulocytes % 0.2 % (0-4); Lymphocytes # 2.2 K/mcL (0.6-4.6); Lymphocytes % 40.2 %; Mean Corpuscular HGB Conc 33.6 g/dL (31.6-35.5); Mean Corpuscular Volume 98.2 fL (83.0-100.0); Mean Platelet Volume 9.4 fL (9.4-12.4); Monocytes # 0.7 K/mcL (0.0-1.3); Monocytes % 12.9 %; Neutrophils # 2.4 K/mcL (1.6-8.9); Platelet Count 202 K/mcL (140-400); Red Blood Count 2.82 M/mcL (3.82-4.97); Red Cell Distribution Width 12.2 % (11.5-14.5); Segmented Neutrophils % 43.9 %; White Blood Count 5.4 K/mcL (4.3-11.1)
[2022-05-30 05:26] LABS: Alanine Aminotransferase 13 Units/L (7-52); Albumin 3.3 g/dL (3.5-5.7); Albumin/Globulin Ratio 1.4 (1.1-2.2); Alkaline Phosphatase 59 Units/L (34-104); Aspartate Amino Transferase 20 Units/L (13-39); BUN/Creatinine Ratio 15 (6-26); Bilirubin,Total 0.3 mg/dL (0.3-1.0); Blood Urea Nitrogen 13 mg/dL (8-23); Calcium 8.6 mg/dL (8.6-10.3); Carbon Dioxide 25 mEq/L (23-29); Chloride 100 mEq/L (98-107); Globulin 2.4 g/dL (2.4-3.5); Glucose 99 mg/dL (70-105); Osmolality,Calculated 274 (280-300); Potassium 4.1 mEq/L (3.5-5.1); Sodium 132 mEq/L (136-145); Total Protein 5.7 g/dL (6.4-8.9); eGFR For African Americans > 60 (> 60); eGFR For Non-African Americans > 60 (> 60)
[2022-05-30 07:20] VITALS: BP 126/62; PULSE 59; TEMP 97.7; O2SAT 96
[2022-05-30] MEDS: calcium polycarbophiL 625 MG TABLET PO SCH (08:39)
[2022-05-30] MEDS: Lactobacillus 1 EACH CAP.SPRINK PO SCH (08:40)
[2022-05-30] MEDS: Pantoprazole 40 MG VIAL IVP SCH (08:42)
[2022-05-30] MEDS: polyethylene glycoL 3350 17 GM POWD.PACK PO SCH (08:42)
[2022-05-30] MEDS ORDERED: Aspirin 81 MG TAB.CHEW PO SCH (09:00)
== END 2022-05-30 12:18 | disposition home or self-care (01) ==
LOC: 3ANU 17:01 → EMEROOARM 17:01 → SUATTDRO 23:38 → 3ANU 05-25 00:43
PROVIDERS: ADMIT Student in an Organized Health Care Education/Training Program; ATTEND Internal Medicine